=== PATIENT | male | born 2000 | race Two or more races ===

== ENCOUNTER → 2021-07-30 13:19 | Outpatient (BNVA) | payer OTHER, SELFPAY | PROVIDERS: PCP Internal Medicine; Visit Provider Dietitian, Registered | DX: E66.9 Obesity, unspecified (principal); Z68.43 Body mass index [BMI] 50.0-59.9, adult | CPT/HCPCS: 97802 ==

== ENCOUNTER 2021-09-05 08:49 | Outpatient (REF) | payer OTHER, SELFPAY ==
[2021-09-05 09:09] LABS: MANUAL DIFF FLAG NO
[2021-09-05 10:31] LABS: Basophils Percent Auto 0.6 % (0-2); Eosinophils Absolute Auto 0.2 X10*3/uL (0.0-0.4); Eosinophils Percent Auto 2.1 % (0-4); Hematocrit 37.7 % (42.0-52.0); Hemoglobin 11.7 g/dl (14.0-18.0); Imm Gran Abs Auto 0.01 X10*3/uL (0.00-0.03); Imm Gran Pct Auto 0.1 % (0.0-0.4); Lymphocytes Absolute Auto 1.7 X10*3/uL (1.2-4.9); Lymphocytes Percent Auto 23.5 % (20-40); Mean Corpuscular Hemoglobin 23.6 pg (27.0-33.0); Mean Corpuscular Volume 76.2 fL (80.0-98.0); Mean Platelet Volume 11.3 fL (9.4-12.4); Monocytes Absolute Auto 0.6 X10*3/uL (0.1-1.2); Monocytes Percent Auto 8.3 % (2-11); Neutrophils Absolute Auto 4.7 x10*3/uL (2.0-8.3); Neutrophils Percent Auto 65.4 % (45-73); Platelet Count 229 X10*3/uL (160-400); Red Blood Count 4.95 X10*6/uL (4.60-5.80); Red Cell Distribution Width 15.1 % (11.0-16.0); White Blood Count 7.2 X10*3/uL (4.8-10.8)
[2021-09-05 10:47] LABS: Appearance Urine CLEAR; Color Urine YELLOW; Glucose Urine UA NEG (NEG); Leukocyte Esterase Urine NEG (NEG); Nitrite Urine NEG (NEG); Specific Gravity - Urine 1.015 (1.005-1.025); Urine Blood NEG (NEG); Urine Ketones NEG (NEG); Urine Protein NEG (NEG-TRACE)
[2021-09-05 10:57] LABS: Estimated Average Glucose 108 mg/dL; Hemoglobin A1c % 5.4 %
[2021-09-05 11:00] LABS: RBC Urine 0-2 /HPF (0); Squamous Epithelial Cell Urine TRACE /LPF; WBC Urine 0-2 /HPF (0-4)
[2021-09-05 11:12] LABS: Alanine Aminotransferase 54 U/L (0-40); Albumin Level 4.1 g/dL (3.5-5.0); Alkaline Phosphatase 109 U/L (39-117); Anion Gap 14 (12-20); Aspartate Amino Transferase 42 U/L (5-37); Bilirubin Total 0.5 mg/dL (0.0-1.0); Blood Urea Nitrogen 10 mg/dL (9-16); Calcium 9.1 mg/dL (8.4-10.2); Carbon Dioxide 25 mmol/L (22-29); Chloride 105 mmol/L (96-108); Cholesterol 163 mg/dL; Estimated Glomerular Filt Rate > 60; Glucose Random 77 mg/dL (60-115); HDL Cholesterol 37 mg/dL; LDL Cholesterol Calculated 106 mg/dl; Potassium 4.6 mmol/L (3.3-5.1); Sodium 139 mmol/L (135-145); Total Protein 6.9 g/dL (6.5-8.0); Triglycerides 100 mg/dL
[2021-09-05 11:20] LABS: Free T4 (Free Thyroxine) 1.09 ng/dL (0.71-1.85); Thyroid Stimulating Hormone 1.19 uIU/mL (0.32-4.0)
[2021-09-05 11:36] LABS: Vitamin B12 < 146 pg/mL (200-900)
== END 2021-09-05 08:50 | disposition home or self-care (01) ==
LOC: HO.LAB 08:49
PROVIDERS: PCP Internal Medicine; Visit Provider Internal Medicine
DX: K75.81 Nonalcoholic steatohepatitis (NASH) (principal); I10 Essential (primary) hypertension; Q61.3 Polycystic kidney, unspecified; E78.00 Pure hypercholesterolemia, unspecified
CPT/HCPCS: 36415; 80053; 80061; 81001; 82607; 82746; 83036; 84439; 84443; 85025

== ENCOUNTER → 2021-10-01 12:38 | Outpatient (BNVA) | payer OTHER, SELFPAY | PROVIDERS: PCP Internal Medicine; Visit Provider Dietitian, Registered | DX: E66.9 Obesity, unspecified (principal); Z71.3 Dietary counseling and surveillance | CPT/HCPCS: 97803 ==

== ENCOUNTER → 2021-11-27 13:47 | Outpatient (BNVA) | payer OTHER, SELFPAY | PROVIDERS: PCP Internal Medicine; Visit Provider Dietitian, Registered | DX: E66.01 Morbid (severe) obesity due to excess calories (principal) | CPT/HCPCS: 97803 ==

== ENCOUNTER 2022-02-27 07:55 | Outpatient (REF) | payer OTHER, SELFPAY ==
[2022-02-27 08:08] LABS: MANUAL DIFF FLAG NO
[2022-02-27 08:20] LABS: Basophils Absolute Auto 0.1 X10*3/uL (0.0-0.2); Basophils Percent Auto 0.6 % (0-2); Eosinophils Absolute Auto 0.1 X10*3/uL (0.0-0.4); Eosinophils Percent Auto 1.6 % (0-4); Hematocrit 38.2 % (42.0-52.0); Imm Gran Abs Auto 0.02 X10*3/uL (0.00-0.03); Imm Gran Pct Auto 0.2 % (0.0-0.4); Immature Retic Fraction 18.7 % (2.3-13.4); Lymphocytes Percent Auto 23.5 % (20-40); Mean Corpuscular HGB Conc 31.4 g/dl (31.0-36.0); Mean Corpuscular Hemoglobin 24.1 pg (27.0-33.0); Mean Corpuscular Volume 76.7 fL (80.0-98.0); Mean Platelet Volume 9.4 fL (9.4-12.4); Monocytes Absolute Auto 0.7 X10*3/uL (0.1-1.2); Monocytes Percent Auto 8.2 % (2-11); Neutrophils Absolute Auto 5.6 x10*3/uL (2.0-8.3); Neutrophils Percent Auto 65.9 % (45-73); Platelet Count 301 X10*3/uL (160-400); Red Blood Count 4.98 X10*6/uL (4.60-5.80); Red Cell Distribution Width 15.4 % (11.0-16.0); Retic HGB Equivalent 25.8 pg (30.0-35.0); Reticulocyte Percent 1.5 % (0.5-1.8); Reticulocytes Absolute 0.073 X10*6/uL (0.026-0.095); White Blood Count 8.5 X10*3/uL (4.8-10.8)
[2022-02-27 08:59] LABS: Alanine Aminotransferase 32 U/L (0-40); Albumin Level 4.2 g/dL (3.5-5.0); Alkaline Phosphatase 112 U/L (39-117); Anion Gap 13 (12-20); Aspartate Amino Transferase 22 U/L (5-37); Bilirubin Total 0.5 mg/dL (0.0-1.0); Blood Urea Nitrogen 15 mg/dL (9-16); Calcium 9.5 mg/dL (8.4-10.2); Carbon Dioxide 26 mmol/L (22-29); Chloride 107 mmol/L (96-108); Estimated Glomerular Filt Rate > 60; Glucose Random 92 mg/dL (60-115); Iron 39 mcg/dL (45-160); Percent Iron Saturation 11 % (15-50); Potassium 4.5 mmol/L (3.3-5.1); Sodium 141 mmol/L (135-145); Total Iron Binding Capacity 363 mcg/dL (228-428); Total Protein 6.9 g/dL (6.5-8.0); Unsaturated Iron Binding 324 ug/dL
[2022-02-27 09:15] LABS: Ferritin 17 ng/mL (20-250)
[2022-02-27 09:30] LABS: Folate 17.7 ng/mL (> or = 4.0); Vitamin B12 901 pg/mL (200-900)
[2022-03-03 22:08] LABS: Intrinsic Factor Antibodies Negative (Negative)
[2022-03-07 14:14] LABS: Parietal Cell Antibody <=20.0 Unit (<=20.0)
== END 2022-02-27 07:56 | disposition home or self-care (01) ==
LOC: HO.LAB 07:55
PROVIDERS: PCP Internal Medicine; Visit Provider Internal Medicine
DX: D64.9 Anemia, unspecified (principal); K75.81 Nonalcoholic steatohepatitis (NASH); E53.8 Deficiency of other specified B group vitamins
CPT/HCPCS: 36415; 80053; 82607; 82728; 82746; 83516; 83540; 85025; 85045; 86340

== ENCOUNTER → 2022-04-10 13:22 | Outpatient (BNVA) | payer OTHER, SELFPAY | PROVIDERS: PCP Internal Medicine; Visit Provider Dietitian, Registered | DX: E66.01 Morbid (severe) obesity due to excess calories (principal); Z68.43 Body mass index [BMI] 50.0-59.9, adult | CPT/HCPCS: 97803 ==

== ENCOUNTER 2022-09-11 13:59 | Outpatient (AMB) | payer OTHER, SELFPAY ==
[2022-09-11 14:04] VITALS: BP 136/70; PULSE 84; O2SAT 98; BMI 54.8
--- NOTE | 2022-09-11 14:04 | MHC.PC.OV ---
Vital Signs 09/11/22 14:04 Height 5 ft 10 in Weight 382 lb BMI 54.8 BP 136/70 Blood Pressure Location Lt brachial Position Sitting Pulse 84 Pulse Source Pulse Oximeter Pulse Oximetry (%) 98 Oxygen Delivery Method Room Air Intake Visit Reasons: anemia, HTN Allergies No Known Allergies [No Known Allergies*] Allergy (Verified 09/11/22 14:04) Medication List - Last Reconciled 09/11/22 by Georgette Angelo MD ascorbate calcium (vitamin C) 500 mg PO DAILY clindamycin-benzoyl peroxide 1.2 %(1 % base) -5 % 1 appl topical QPM cyanocobalamin (vitamin B-12) 1,000 mcg PO DAILY ferrous sulfate (FeroSul) 325 mg PO DAILY folic acid 1 mg PO DAILY 30 days semaglutide (weight loss) 0.25 mg (0.5 mL) subcut QWEEK Tobacco use date assessed: 03/13/22 Dental Screening Dental Screen Date: 09/11/22 Did you have a dental visit in the last 12 months?: No Did you have a dental problem in the last 6 months where you did not have access to dental care?: No Was dental information given to patient?: No HPI anemia, HTN HPI Details 22-year-old morbidly obese male with iron deficiency anemia vitamin B12 deficiency fatty liver polycystic kidney disease and hypertension last seen in February 2022 and blood work was requested patient is here for follow-up. Patient has seen Nephrology June 2022 concern about the blood pressure and the weight. Blood work in February did show iron and vitamin B12 deficiency anemia [facility] Medical History (Updated 09/11/22 @ 14:27 by Georgette Angelo MD) Annual physical exam Asthma CURIEL (nonalcoholic steatohepatitis) Obesity Polycystic kidney disease Family History (Updated 09/11/22 @ 14:05 by Jen Varma CMA) Mother Diabetes Father Diabetes Polycystic kidney disease Sister No problems noted. Social History (Updated 04/04/21 @ 14:01 by Georgette Angelo MD) Housing: Other Alcohol intake: never Patient Tobacco Use Status: Never used Tobacco e-Cigarette/Vaping Use: Never Used Second Hand Smoke Exposure: No service: No Current occupational status: employed Cognitive needs: No Hearing needs: No Vision needs: No Questionnaire PHQ-9 Over the last 2 weeks, how often have you been bothered by any of the following problems? 1. Little interest or pleasure in doing things: not at all 2. Feeling down, depressed, or hopeless: not at all 3. Trouble falling or staying asleep, or sleeping too much: not at all 4. Feeling tired or having little energy: not at all 5. Poor appetite or overeating: not at all 6. Feeling bad about yourself - or that you are a failure or have let yourself or your family down: not at all 7. Trouble concentrating on things, such as reading the newspaper or watching television: not at all 8. Moving or speaking so slowly that other people could have noticed. Or the opposite - being so fidgety or restless that you have been moving around a lot more than usual: not at all 9. Thoughts that you would be better off or of hurting yourself in some way: not at all Total score: 0 Depression Screening Interpretation: Negative Source: Developed by Drs. Nicholas Howell, Marlys Sykes, Jared Fox and colleagues, with an educational sameera from [email or web address]. Thrive Questionnaire Date Thrive assessed: 03/13/22 AUDIT C Alcohol Use Questionnaire (AUDIT-C) 1. How often do you have a drink containing alcohol?: Never 3. How often do you have six or more drinks on one occasion?: Never Total Score: 0 RL-7 AMB Questionnaire RL-7 Date RL - 7 assessed: 03/13/22 Source: Developed by Drs. Nicholas Howell, Marlys Sykes, Jared Fox and colleagues, with an educational sameera from [email or web address]. Physical exam (Primary Care) Vital Signs: Last Vital Signs Pulse 84 09/11/22 14:04 BP 136/70 09/11/22 14:04 Pulse Ox 98 09/11/22 14:04 Oxygen Delivery Method Room Air 09/11/22 14:04 BMI result Body Mass Index 54.8 Tobacco/Smoking Status: Tobacco use Status Tobacco use date assessed 03/13/22 09/11/22 14:07 Patient Tobacco Use Status Never used Tobacco 09/11/22 14:07 e-Cigarette/Vaping Use Never Used 09/11/22 14:07 PHQ-9: PHQ-9 Score PHQ-9: Total score 0 09/11/22 14:07 Depression Screening Interpretation: Negative Thrive Assessment: Date of Thrive Assessment Date Thrive assessed 03/13/22 09/11/22 14:07 Const General: alert; No acute distress Eyes Conjunctivae: conjunctivae normal Resp Auscultation: clear to auscultation bilaterally Cardio Rate: regular rate Rhythm: regular rhythm GI Inspection: Yes normal to inspection Extrem General: Yes normal to inspection and No edema Assessment and Plan Assessment & Plan (1) Iron deficiency anemia: Code(s): D50.9 - Iron deficiency anemia, unspecified Plan: Patient is advised to take iron and vitamin-C (2) Vitamin B12 deficiency: Code(s): E53.8 - Deficiency of other specified B group vitamins Plan: Patient is advised to take vitamin B12 1000 mcg once a day (3) Morbid obesity due to excess calories: Code(s): E66.01 - Morbid (severe) obesity due to excess calories Plan: Patient has been sent to a magnetic prospecting supervisor to help lose the weight but this has not been effective (4) CURIEL (nonalcoholic steatohepatitis): Code(s): K75.81 - Nonalcoholic steatohepatitis (CURIEL) Plan: Low-fat diet and exercise (5) Polycystic kidney disease: Comment: Nephrology 2021 Code(s): Q61.3 - Polycystic kidney, unspecified Plan: Patient is being monitored by Nephrology (6) Hypertension: Code(s): I10 - Essential (primary) hypertension Plan: Blood pressure presently is under control (7) Asthma: Code(s): J45.909 - Unspecified asthma, uncomplicated Plan: This is controlled (8) Seborrhea: Code(s): L21.9 - Seborrheic dermatitis, unspecified Orders: Referrals Medical Weight Management Referral E66.01 - Morbid (severe) obesity due to excess calories Dermatology Referral L21.9 - Seborrheic dermatitis, unspecified Medications: New semaglutide (weight loss) administer weeks 1 through 4 of therapy 0.25 mg (0.5 mL) subcut QWEEK 2 mL 1RF E66.01 - Morbid (severe) obesity due to excess calories ketoconazole 2% 1 appl topical 2XW 120 mL 0RF L21.9 - Seborrheic dermatitis, unspecified Coding Level of Care Code Est Pt Level 4 (44684) Diagnoses Iron deficiency anemia D50.9 Vitamin B12 deficiency E53.8 Morbid obesity due to excess calories E66.01 CURIEL (nonalcoholic steatohepatitis) K75.81 Polycystic kidney disease Q61.3 Hypertension I10 Asthma J45.909 Seborrhea L21.9
== END 2022-09-11 14:33 | disposition home or self-care (01) ==
PROVIDERS: Visit Provider Internal Medicine
DX: I10 Essential (primary) hypertension (principal); E66.01 Morbid (severe) obesity due to excess calories; J45.909 Unspecified asthma, uncomplicated; Z68.43 Body mass index [BMI] 50.0-59.9, adult; E53.8 Deficiency of other specified B group vitamins; Q61.3 Polycystic kidney, unspecified; D50.9 Iron deficiency anemia, unspecified; K75.81 Nonalcoholic steatohepatitis (NASH); L21.9 Seborrheic dermatitis, unspecified
CPT/HCPCS: 99214

== ENCOUNTER 2022-11-26 10:53 | Outpatient (REF) | payer OTHER, SELFPAY ==
[2022-11-26 11:07] LABS: MANUAL DIFF FLAG NO
[2022-11-26 11:47] LABS: Basophils Percent Auto 0.5 % (0-2); Eosinophils Absolute Auto 0.1 X10*3/uL (0.0-0.4); Eosinophils Percent Auto 1.6 % (0-4); Hemoglobin 14.4 g/dl (14.0-18.0); Imm Gran Abs Auto 0.02 X10*3/uL (0.00-0.03); Imm Gran Pct Auto 0.3 % (0.0-0.4); Immature Retic Fraction 11.3 % (2.3-13.4); Lymphocytes Absolute Auto 1.7 X10*3/uL (1.2-4.9); Lymphocytes Percent Auto 22.2 % (20-40); Mean Corpuscular HGB Conc 32.7 g/dl (31.0-36.0); Mean Corpuscular Hemoglobin 27.6 pg (27.0-33.0); Mean Corpuscular Volume 84.5 fL (80.0-98.0); Mean Platelet Volume 9.8 fL (9.4-12.4); Monocytes Absolute Auto 0.6 X10*3/uL (0.1-1.2); Monocytes Percent Auto 7.2 % (2-11); Neutrophils Absolute Auto 5.2 x10*3/uL (2.0-8.3); Neutrophils Percent Auto 68.2 % (45-73); Platelet Count 264 X10*3/uL (160-400); Red Blood Count 5.21 X10*6/uL (4.60-5.80); Red Cell Distribution Width 13.4 % (11.0-16.0); Retic HGB Equivalent 32.5 pg (30.0-35.0); Reticulocyte Percent 1.8 % (0.5-1.8); Reticulocytes Absolute 0.096 X10*6/uL (0.026-0.095); White Blood Count 7.7 X10*3/uL (4.8-10.8)
[2022-11-26 12:25] LABS: Alanine Aminotransferase 40 U/L (0-40); Albumin Level 4.2 g/dL (3.5-5.0); Alkaline Phosphatase 108 U/L (39-117); Anion Gap 13 (12-20); Aspartate Amino Transferase 26 U/L (5-37); Bilirubin Total 0.5 mg/dL (0.0-1.0); Blood Urea Nitrogen 13 mg/dL (9-16); Calcium 9.5 mg/dL (8.4-10.2); Carbon Dioxide 26 mmol/L (22-29); Chloride 107 mmol/L (96-108); Estimated Glomerular Filt Rate > 60; Glucose Random 101 mg/dL (60-115); Iron 73 mcg/dL (45-160); Percent Iron Saturation 24 % (15-50); Potassium 4.1 mmol/L (3.3-5.1); Sodium 142 mmol/L (135-145); Total Iron Binding Capacity 305 mcg/dL (228-428); Total Protein 7.4 g/dL (6.5-8.0); Unsaturated Iron Binding 232 ug/dL
[2022-11-26 12:36] LABS: Ferritin 75 ng/mL (20-250)
[2022-11-26 12:46] LABS: Folate 17.4 ng/mL (> or = 4.0); Vitamin B12 1566 pg/mL (200-900)
== END 2022-11-26 10:54 | disposition home or self-care (01) ==
LOC: HO.LAB 10:53
PROVIDERS: PCP Internal Medicine; Visit Provider Internal Medicine
DX: D50.9 Iron deficiency anemia, unspecified (principal)
CPT/HCPCS: 36415; 80053; 82607; 82728; 82746; 83540; 85025; 85045

== ENCOUNTER 2023-04-20 15:15 | Outpatient (AMB) | payer OTHER, SELFPAY ==
[2023-04-20 15:16] VITALS: BP 146/92; PULSE 76; O2SAT 100; BMI 52.7
--- NOTE | 2023-04-20 15:16 | MHC.PC.OV ---
Vital Signs 04/20/23 15:16 04/20/23 15:53 Height 5 ft 10 in Weight 367 lb BMI 52.7 BP 146/92 H 140/90 H Blood Pressure Location Lt brachial Lt brachial Position Sitting Sitting Pulse 76 Pulse Source Pulse Oximeter Pulse Oximetry (%) 100 Oxygen Delivery Method Room Air Intake Visit Reasons: 9m follow up Dishtank Operator Required: No Allergies No Known Allergies [No Known Allergies*] Allergy (Verified 04/20/23 15:17) Medication List - Last Reconciled 04/20/23 by Georgette Angelo MD ascorbate calcium (vitamin C) 500 mg PO DAILY clindamycin-benzoyl peroxide 1.2 %(1 % base) -5 % 1 appl topical QPM cyanocobalamin (vitamin B-12) 1,000 mcg PO DAILY ferrous sulfate (FeroSul) 325 mg PO DAILY folic acid 1 mg PO DAILY ketoconazole 2% 1 appl topical 2XW semaglutide (weight loss) 0.25 mg (0.5 mL) subcut QWEEK Tobacco use date assessed: 04/20/23 Dental Screening Dental Screen Date: 04/20/23 HPI 9m follow up HPI Details [age] Year old morbidly obese male with iron deficiency anemia vitamin B12 deficiency nonalcoholic steatohepatitis polycystic kidney disease hypertension asthma coming in for follow-up last seen in August 2022. Patient did have the vaccine for flu in January 2023 [facility] Medical History (Updated 04/20/23 @ 15:54 by Georgette Angelo MD) Annual physical exam Obesity Asthma Polycystic kidney disease CURIEL (nonalcoholic steatohepatitis) Family History (Updated 09/11/22 @ 14:05 by Jen Varma [facility]) Mother Diabetes Father Diabetes Polycystic kidney disease Sister No problems noted. Social History (Updated 04/04/21 @ 14:01 by Georgette Angelo MD) Housing: Other Alcohol intake: never Patient Tobacco Use Status: Never used Tobacco e-Cigarette/Vaping Use: Never Used Second Hand Smoke Exposure: No service: No Current occupational status: employed Cognitive needs: No Hearing needs: No Vision needs: No Questionnaire PHQ-9 Over the last 2 weeks, how often have you been bothered by any of the following problems? 1. Little interest or pleasure in doing things: not at all 2. Feeling down, depressed, or hopeless: not at all 3. Trouble falling or staying asleep, or sleeping too much: not at all 4. Feeling tired or having little energy: not at all 5. Poor appetite or overeating: not at all 6. Feeling bad about yourself - or that you are a failure or have let yourself or your family down: not at all 7. Trouble concentrating on things, such as reading the newspaper or watching television: not at all 8. Moving or speaking so slowly that other people could have noticed. Or the opposite - being so fidgety or restless that you have been moving around a lot more than usual: not at all 9. Thoughts that you would be better off or of hurting yourself in some way: not at all Total score: 0 Depression Screening Interpretation: Negative Depression Screening Done: Yes Source: Developed by Drs. Nicholas Howell, Marlys Sykes, Jared Fox and colleagues, with an educational sameera from [employer]. Thrive Questionnaire Date Thrive assessed: 04/20/23 AUDIT C Alcohol Use Questionnaire (AUDIT-C) 1. How often do you have a drink containing alcohol?: Never 3. How often do you have six or more drinks on one occasion?: Never Total Score: 0 RL-7 AMB Questionnaire RL-7 Date RL - 7 assessed: 04/20/23 Feeling nervous, anxious, or on edge: 0 = Not at all Not being able to stop or control worryin = Not at all Worrying too much about different things: 0 = Not at all Trouble relaxin = Not at all Being so restless that it is hard to sit still: 0 = Not at all Becoming easily annoyed or irritable: 0 = Not at all Feeling afraid as if something awful might happen: 0 = Not at all Total RL-7 score (0-4 normal; 5-9 mild; 10-14 moderate; 15-21 severe): 0 Source: Developed by Drs. Nicholas Howell, Jared Harry and colleagues, with an educational sameera from [employer]. Physical exam (Primary Care) Vital Signs: Last Vital Signs Pulse 76 04/20/23 15:16 BP 146/92 H 04/20/23 15:16 Pulse Ox 100 04/20/23 15:16 Oxygen Delivery Method Room Air 04/20/23 15:16 BMI result Body Mass Index 52.7 Tobacco/Smoking Status: Tobacco use Status Tobacco use date assessed 04/20/23 04/20/23 15:17 Patient Tobacco Use Status Never used Tobacco 04/20/23 15:17 e-Cigarette/Vaping Use Never Used 04/20/23 15:17 PHQ-9: PHQ-9 Score PHQ-9: Total score 0 04/20/23 15:17 Depression Screening Interpretation: Negative Thrive Assessment: Date of Thrive Assessment Date Thrive assessed 04/20/23 04/20/23 15:17 Const General: alert; No acute distress Eyes Conjunctivae: conjunctivae normal Resp Auscultation: clear to auscultation bilaterally Cardio Rate: regular rate Rhythm: regular rhythm GI Inspection: Yes normal to inspection Extrem General: Yes normal to inspection and No edema Assessment and Plan Assessment & Plan (1) Morbid obesity due to excess calories: Code(s): E66.01 - Morbid (severe) obesity due to excess calories Plan: Diet and exercise, continue with semaglutide (2) Iron deficiency anemia: Code(s): D50.9 - Iron deficiency anemia, unspecified Plan: Resolved (3) Hypertension: Comment: BP at home is good Code(s): I10 - Essential (primary) hypertension Plan: BP at home has been good (4) Asthma: Code(s): J45.909 - Unspecified asthma, uncomplicated Plan: Stable (5) CURIEL (nonalcoholic steatohepatitis): Code(s): K75.81 - Nonalcoholic steatohepatitis (CURIEL) Plan: Low-fat diet and exercise Medications: Refilled clindamycin-benzoyl peroxide 1.2 %(1 % base) -5 % 1 appl topical QPM 45 grams 2RF Coding Level of Care Code Est Pt Level 4 (89008) Diagnoses Morbid obesity due to excess calories E66.01 Iron deficiency anemia D50.9 Hypertension I10 Asthma J45.909 CURIEL (nonalcoholic steatohepatitis) K75.81
[2023-04-20 15:53] VITALS: BP 140/90
== END 2023-04-20 16:00 | disposition home or self-care (01) ==
PROVIDERS: PCP Internal Medicine; Visit Provider Internal Medicine
DX: D50.9 Iron deficiency anemia, unspecified (principal); E66.01 Morbid (severe) obesity due to excess calories; Z68.43 Body mass index [BMI] 50.0-59.9, adult; I10 Essential (primary) hypertension; J45.909 Unspecified asthma, uncomplicated; K75.81 Nonalcoholic steatohepatitis (NASH)
CPT/HCPCS: 99214

== ENCOUNTER 2023-10-19 14:46 | Outpatient (AMB) | payer OTHER, SELFPAY ==
--- NOTE | 2023-10-19 14:52 | MHC.PC.OV ---
Vital Signs 10/19/23 14:53 Height 5 ft 10 in Weight 364 lb BMI 52.2 BP 144/92 H Blood Pressure Location Lt brachial Position Sitting Pulse 83 Pulse Source Pulse Oximeter Pulse Oximetry (%) 98 Oxygen Delivery Method Room Air Intake Visit Reasons: Annual Exam Allergies No Known Allergies [No Known Allergies*] Allergy (Verified 10/19/23 14:53) Medication List - Last Reconciled 10/19/23 by Georgette Angelo MD ascorbic acid (vitamin C) (Vitamin C) 500 mg PO DAILY clindamycin-benzoyl peroxide 1.2 %(1 % base) -5 % 1 appl topical QPM cyanocobalamin (vitamin B-12) 1,000 mcg PO DAILY ferrous sulfate 325 mg PO DAILY folic acid 1 mg PO DAILY ketoconazole 2% 1 appl topical 2XW Tobacco use date assessed: 04/20/23 Dental Screening Dental Screen Date: 10/19/23 Did you have a dental visit in the last 12 months?: No Did you have a dental problem in the last 6 months where you did not have access to dental care?: No Was dental information given to patient?: Patient has dentist HPI Annual Exam HPI Details 23-year-old morbidly obese male with anemia hypertension asthma hepatic steatosis coming in for physical exam last seen in March 2023. 3 days sore throat , no chills, , mild cough covid checked negative [facility] Medical History (Updated 10/19/23 @ 15:25 by Georgette Angelo MD) Annual physical exam Obesity Asthma Polycystic kidney disease CURIEL (nonalcoholic steatohepatitis) Family History (Updated 09/11/22 @ 14:05 by Jen Varma [facility]) Mother Diabetes Father Diabetes Polycystic kidney disease Sister No problems noted. Social History (Updated 04/04/21 @ 14:01 by Georgette Angelo MD) Housing: Other Alcohol intake: never Patient Tobacco Use Status: Never used Tobacco Tobacco use type: Cigarette e-Cigarette/Vaping Use: Never Used Second Hand Smoke Exposure: No service: No Current occupational status: employed Cognitive needs: No Hearing needs: No Vision needs: No Questionnaire PHQ-9 Over the last 2 weeks, how often have you been bothered by any of the following problems? 1. Little interest or pleasure in doing things: not at all 2. Feeling down, depressed, or hopeless: not at all 3. Trouble falling or staying asleep, or sleeping too much: not at all 4. Feeling tired or having little energy: not at all 5. Poor appetite or overeating: not at all 6. Feeling bad about yourself - or that you are a failure or have let yourself or your family down: not at all 7. Trouble concentrating on things, such as reading the newspaper or watching television: not at all 8. Moving or speaking so slowly that other people could have noticed. Or the opposite - being so fidgety or restless that you have been moving around a lot more than usual: not at all 9. Thoughts that you would be better off or of hurting yourself in some way: not at all Total score: 0 Depression Screening Interpretation: Negative Depression Screening Done: Yes Source: Developed by Drs. Nicholas Howell, Marlys Sykes, Jared Fox and colleagues, with an educational sameera from [employer]. Thrive Questionnaire Date Thrive assessed: 04/20/23 AUDIT C Alcohol Use Questionnaire (AUDIT-C) 1. How often do you have a drink containing alcohol?: Never 3. How often do you have six or more drinks on one occasion?: Never Total Score: 0 RL-7 AMB Questionnaire RL-7 Date RL - 7 assessed: 04/20/23 Source: Developed by Drs. Nicholas Howell, Marlys Sykes, Jared Fox and colleagues, with an educational sameera from [employer]. Review of Systems Const Denies poor appetite and Denies weakness Eyes Denies no additional complaints ENT Reports Normal hearing present, Denies dizziness, Denies nasal congestion, Denies tinnitus and Denies sore throat Card Denies chest pain, Denies syncope, Denies rapid heart rate and Denies dyspnea Resp Denies cough and Denies dyspnea GI Denies change in stool character, Reports constipation, Denies diarrhea, Denies nausea and Denies vomiting Denies dysuria and Denies urinary frequency Neuro Reports Normal hearing present, Denies confusion, Denies dizziness, Denies syncope and Denies weakness Psych Denies confusion Physical exam (Primary Care) Vital Signs: Last Vital Signs Pulse 83 10/19/23 14:53 BP 144/92 H 10/19/23 14:53 Pulse Ox 98 10/19/23 14:53 Oxygen Delivery Method Room Air 10/19/23 14:53 BMI result Body Mass Index 52.2 Tobacco/Smoking Status: Tobacco use Status Tobacco use date assessed 04/20/23 10/19/23 14:57 Patient Tobacco Use Status Never used Tobacco 10/19/23 14:57 Tobacco use type Cigarette 10/19/23 14:57 e-Cigarette/Vaping Use Never Used 10/19/23 14:57 PHQ-9: PHQ-9 Score PHQ-9: Total score 0 10/19/23 14:57 Depression Screening Interpretation: Negative Thrive Assessment: Date of Thrive Assessment Date Thrive assessed 04/20/23 10/19/23 14:57 Const General: No confusion Orientation/consciousness: No confusion HENMT Other: B/l ear impacted cerumen a , whitish discharge bilateral tonsils and enlarged Head: Yes normocephalic Ears: external ears normal Face and sinus: Yes normal facial exam Mouth: moist mucous membranes Eyes Conjunctivae: conjunctivae normal Pupils: Equal, round and reactive pupils present and Pupil accommodation reflex normal Direct Ophthalmoscopy: normal light reflex Neck Neck: No lymphadenopathy Thyroid: Thyroid normal Chest Chest palpation & inspection: normal inspection of the chest Resp Effort & Inspection: normal respiratory effort and no audible wheezes Auscultation: clear to auscultation bilaterally, no crackles, no wheezes and lung sounds not diminished Cardio Rate: regular rate Rhythm: regular rhythm Peripheral pulses: radial pulses present and dorsalis pedis present GI Palpation (GI): no masses Auscultation: normal bowel sounds and normoactive bowel sounds Rectal Exam - Male: Yes deferred Skin General skin exam: no rashes or lesions noted Rashes: no rashes Neuro General: No confusion Cranial nerves: Yes Equal, round and reactive pupils present and Yes Normal hearing present Cognition (Neuro): normal cognition Gait exam (Neuro): Normal gait present Motor exam (neuro): 5/5 motor strength present throughout Deep tendon reflexes (DTR's): Right brachioradialis reflex intensity grade: 2+, Left brachioradialis reflex intensity grade: 2+, Right patellar reflex intensity grade: 2+ and Left patellar reflex intensity grade: 2+ Extrem General: No edema Assessment and Plan Assessment & Plan (1) Annual physical exam: Code(s): Z00.00 - Encounter for general adult medical examination without abnormal findings Plan: Patient is advised to eat healthy, keep well hydrated, keep active and have adequate sleep. (2) Morbid obesity due to excess calories: Code(s): E66.01 - Morbid (severe) obesity due to excess calories Plan: Continue to keep active, keep well hydrated and eat healthy. (3) CURIEL (nonalcoholic steatohepatitis): Code(s): K75.81 - Nonalcoholic steatohepatitis (CURIEL) Plan: Low-fat diet and exercise (4) Polycystic kidney disease: Comment: Nephrology 2021 Code(s): Q61.3 - Polycystic kidney, unspecified (5) Hypertension: Comment: BP at home is good Code(s): I10 - Essential (primary) hypertension Plan: Continuing to monitor blood pressure (6) Asthma: Code(s): J45.909 - Unspecified asthma, uncomplicated Plan: Stable (7) Seborrhea: Code(s): L21.9 - Seborrheic dermatitis, unspecified (8) Tonsillitis: Code(s): J03.90 - Acute tonsillitis, unspecified (9) Impacted cerumen of both ears: Code(s): H61.23 - Impacted cerumen, bilateral Plan: will schedule for easr irrigation prn Orders: Orders Complete Blood Count Auto Diff 1 Month E66.01 - Morbid (severe) obesity due to excess calories Ferritin 1 Month D50.9 - Iron deficiency anemia, unspecified IRON PROFILE 1 Month D50.9 - Iron deficiency anemia, unspecified Reticulocyte Count 1 Month D50.9 - Iron deficiency anemia, unspecified Vitamin B12 and Folate 1 Month E66.01 - Morbid (severe) obesity due to excess calories Comprehensive Met. Panel 1 Month E66.01 - Morbid (severe) obesity due to excess calories Free T4 (Free Thyroxine) 1 Month E66.01 - Morbid (severe) obesity due to excess calories Thyroid Stimulating Hormone 1 Month E66.01 - Morbid (severe) obesity due to excess calories Lipid Panel 1 Month E66.01 - Morbid (severe) obesity due to excess calories, E78.00 - Pure hypercholesterolemia, unspecified Hemoglobin A1c 1 Month E66.01 - Morbid (severe) obesity due to excess calories Medications: New azithromycin (Zithromax) For 250 mg dose pack: take 500 mg today (day 1), then 250 mg for 4 days (days 2-5) PO 6 tabs 0RF J03.90 - Acute tonsillitis, unspecified Refilled ferrous sulfate 325 mg PO DAILY 90 tabs 1RF ascorbic acid (vitamin C) (Vitamin C) 500 mg PO DAILY 90 tabs 1RF D50.9 - Iron deficiency anemia, unspecified folic acid 1 mg PO DAILY 90 tabs 1RF E53.8 - Deficiency of other specified B group vitamins Coding Level of Care Code Est Pt Prev Care 18-39y(95191) Diagnoses Annual physical exam Z00.00 Morbid obesity due to excess calories E66.01 CURIEL (nonalcoholic steatohepatitis) K75.81 Polycystic kidney disease Q61.3 Hypertension I10 Asthma J45.909 Seborrhea L21.9 Tonsillitis J03.90 Impacted cerumen of both ears H61.23
[2023-10-19 14:53] VITALS: BP 144/92; PULSE 83; O2SAT 98; BMI 52.2
== END 2023-10-19 15:38 | disposition home or self-care (01) ==
PROVIDERS: PCP Internal Medicine; Visit Provider Internal Medicine
DX: Z00.00 Encounter for general adult medical examination without abnormal findings (principal); E66.01 Morbid (severe) obesity due to excess calories; K75.81 Nonalcoholic steatohepatitis (NASH); Z68.43 Body mass index [BMI] 50.0-59.9, adult; H61.23 Impacted cerumen, bilateral; I10 Essential (primary) hypertension; Q61.3 Polycystic kidney, unspecified; J45.909 Unspecified asthma, uncomplicated; L21.9 Seborrheic dermatitis, unspecified; J03.90 Acute tonsillitis, unspecified
CPT/HCPCS: 99395

== ENCOUNTER 2024-04-04 11:12 | Outpatient (AMB) | payer OTHER, SELFPAY ==
--- NOTE | 2024-04-04 11:13 | MHC.PC.OV ---
Vital Signs 04/04/24 11:17 Height 5 ft 10 in Weight 382 lb BMI 54.8 BP 146/82 H Blood Pressure Location Lt brachial Position Sitting Pulse 71 Pulse Source Pulse Oximeter Pulse Oximetry (%) 98 Oxygen Delivery Method Room Air Intake Visit Reasons: obesity Allergies No Known Allergies [No Known Allergies*] Allergy (Verified 10/19/23 14:53) Tobacco use date assessed: 04/20/23 Dental Screening Dental Screen Date: 10/19/23 HPI obesity HPI Details The patient is a 23-year-old male presenting with concerns regarding morbid obesity and hypertension. He has noted an 18-pound weight gain since his last visit on October 19, 2023. The patient reports a history of essential hypertension and has been monitoring his blood pressure at home, noting occasional readings of 130 mmHg systolic but occasional spikes to 146 mmHg. He acknowledges a lack of physical activity as a contributing factor to his weight gain. The patient's blood glucose level was previously found to be elevated at 101 mg/dL, and he has a history of dyslipidemia with an LDL of 106 mg/dL, last tested in 2021. Thyroid function tests were normal as of August 2021. The patient also has a history of asthma and polycystic kidney disease. The last flu vaccination was administered in late 2022 at [facility], and he is up to date with his tetanus immunization, last received in 2021. Current medication compliance includes use of prescribed topicals for a dermatological condition, assisted by frequent refills. There is a noted lack of recent exercise, contributing to ongoing weight management challenges. [facility] Medical History (Updated 04/04/24 @ 11:24 by Georgette Angelo MD) Annual physical exam Obesity Asthma Polycystic kidney disease CURIEL (nonalcoholic steatohepatitis) Surgical History (Updated 04/04/24 @ 11:17 by ALEXANDRE Bernal) No pertinent past surgical history Family History Mother Diabetes Father Diabetes Polycystic kidney disease Sister No problems noted. Social History Housing: Other Alcohol intake: never Patient Tobacco Use Status: Never used Tobacco Tobacco use type: Cigarette e-Cigarette/Vaping Use: Never Used Second Hand Smoke Exposure: No service: No Current occupational status: employed Cognitive needs: No Hearing needs: No Vision needs: No Questionnaire PHQ-9 Over the last 2 weeks, how often have you been bothered by any of the following problems? 1. Little interest or pleasure in doing things: not at all 2. Feeling down, depressed, or hopeless: not at all 3. Trouble falling or staying asleep, or sleeping too much: not at all 4. Feeling tired or having little energy: not at all 5. Poor appetite or overeating: not at all 6. Feeling bad about yourself - or that you are a failure or have let yourself or your family down: not at all 7. Trouble concentrating on things, such as reading the newspaper or watching television: not at all 8. Moving or speaking so slowly that other people could have noticed. Or the opposite - being so fidgety or restless that you have been moving around a lot more than usual: not at all 9. Thoughts that you would be better off or of hurting yourself in some way: not at all Total score: 0 Depression Screening Interpretation: Negative Depression Screening Done: Yes Source: Developed by Drs. Nicholas Howell, Marlys Sykes, Jared Fox and colleagues, with an educational sameera from [employer]. Thrive Questionnaire Date Thrive assessed: 04/04/24 I am a: Patient What is your living situation today?: I have a steady place to live Within the past 12 months, did the food you bought not last and you didn't have the money to get more?: Never true Within the past 12 months, did you worry whether your food would run out before you got money to buy more?: Never true Do you have trouble paying for medicines?: No Do you have trouble getting transportation to medical appointments?: No Do you have trouble paying your heating and electricity bill?: No Do you have trouble taking care of your child, family member or friend?: No Do you have trouble with day-to-day activities such as bathing, preparing meals, shopping, managing finances, etc.?: No Are you currently unemployed and looking for a job?: No Are you interested in more education?: No Please select the resources that you would like help with: None Currently or been in a relationship where the following occur: No concerns reported THRIVE Score: 0 AUDIT C Alcohol Use Questionnaire (AUDIT-C) 1. How often do you have a drink containing alcohol?: Never Total Score: 0 RL-7 AMB Questionnaire RL-7 Date LR - 7 assessed: 04/04/24 Feeling nervous, anxious, or on edge: 0 = Not at all Not being able to stop or control worryin = Not at all Worrying too much about different things: 0 = Not at all Trouble relaxin = Not at all Being so restless that it is hard to sit still: 0 = Not at all Becoming easily annoyed or irritable: 0 = Not at all Feeling afraid as if something awful might happen: 0 = Not at all Total RL-7 score (0-4 normal; 5-9 mild; 10-14 moderate; 15-21 severe): 0 Source: Developed by Drs. Nicholas Howell, Marlys Sykes, Jared Fox and colleagues, with an educational sameera from [employer]. Physical exam (Primary Care) Vital Signs: Last Vital Signs Pulse 71 04/04/24 11:17 BP 146/82 H 04/04/24 11:17 Pulse Ox 98 04/04/24 11:17 Oxygen Delivery Method Room Air 04/04/24 11:17 BMI result Body Mass Index 54.8 Tobacco/Smoking Status: Tobacco use Status Tobacco use date assessed 04/20/23 04/04/24 11:21 Patient Tobacco Use Status Never used Tobacco 04/04/24 11:21 Tobacco use type Cigarette 04/04/24 11:21 e-Cigarette/Vaping Use Never Used 04/04/24 11:21 PHQ-9: PHQ-9 Score PHQ-9: Total score 0 04/04/24 12:04 Depression Screening Interpretation: Negative Thrive Assessment: Date of Thrive Assessment Date Thrive assessed 04/04/24 04/04/24 11:21 Currently or been in a relationship where the following occur: No concerns reported Const General: alert; No acute distress Eyes Conjunctivae: conjunctivae normal Resp Auscultation: clear to auscultation bilaterally Cardio Rate: regular rate Rhythm: regular rhythm GI Inspection: Yes normal to inspection Extrem General: Yes normal to inspection and No edema Office Procedures Flu Questionnaire Does the patient have a severe egg allergy?: No Immunizations Fluarix Triv [id number] (PF) 45 mcg (15 mcg x 3)/0.5 mL IM syringe Performing Provider: Georgette Angelo MD Performing Location: [facility] Documented (not given) by: Yvetteamandeep Holm CHARBELWarren on 04/04/24 12:04 Reason Not Given: Patient Refused Coding Level of Care Code Est Pt Level 4 (54499) Diagnoses Morbid obesity due to excess calories E66.01 Hypertension I10 Impaired fasting blood sugar R73.01 Seborrhea L21.9 Assessment & Plan Assessment & Plan (1) Morbid obesity due to excess calories: Code(s): E66.01 - Morbid (severe) obesity due to excess calories Category: Medical Plan: Diet and exercise advised on getting weight loss management in the case. (2) Hypertension: Comment: BP at home is good Code(s): I10 - Essential (primary) hypertension Category: Medical (3) Impaired fasting blood sugar: Code(s): R73.01 - Impaired fasting glucose Category: Medical Plan: Decrease the amount of carbohydrate intake, pasta, bread, rice and potatoes are all sugar and that is aside from all the sweet stuff, remember that fruits are good but they are Sweet also. (4) Seborrhea: Code(s): L21.9 - Seborrheic dermatitis, unspecified Category: Medical Plan - Arrange for fasting blood work to assess current glucose and cholesterol levels. - Encourage patient to maintain a log of blood pressure readings taken with an arm cuff device and report any consistent measurements of 140/90 mmHg or higher. - Discuss potential referral to a weight management clinic to address recent increase in body weight and provide structured guidance on lifestyle modifications. - Reassure patient regarding the effectiveness of current dermatological treatments and approve refill of prescribed shampoo. - Advise patient to remain physically active to assist with weight and blood pressure control. - Confirm continuation of annual influenza vaccination and maintain immunization schedule for tetanus as previously outlined. Orders: Orders Influenza [id number] Immunization Today Z23 - Encounter for immunization Medications: Refilled ketoconazole 2% 1 appl topical 2XW 120 mL 0RF L21.9 - Seborrheic dermatitis, unspecified Discontinued azithromycin (Zithromax) Discontinued Reason: Patient Completed Course For 250 mg dose pack: take 500 mg today (day 1), then 250 mg for 4 days (days 2-5) PO 6 tabs 0RF J03.90 - Acute tonsillitis, unspecified
[2024-04-04 11:17] VITALS: BP 146/82; PULSE 71; O2SAT 98; BMI 54.8
--- OUTSIDE RECORDS SUMMARY | 2024-04-04 12:25 | XMS_ITS | Encounter Summary ---
Author Organization [facility] [place], Address [address] [place] [address] Phone Care Team Providers Care Buckle Sewer Name Role Phone Georgette Angelo MD Primary Care Provider [phone] Encounter Details Date Type Department Care Team (Late Contact Info) Description 05/01/2021 Documentation Only [facility] [address] [place] [address] Georgette Angelo MD [facility] [address] [place] [address] Social History Tobacco Use Types Packs/Day Years Used Date Smoking Tobacco: Never Assessed Sex and Gender Information Value Date Recorded Sex Assigned at Not on file Legal Sex Male 4:14 PM EST Gender Identity Not on file Sexual Orientation Not on file documented as of this encounter Plan of Treatment Upcoming Encounters Date Type Department Care Team (Late Contact Info) Description 07/11/2024 1:45 PM EDT Office Visit [facility] [address] [place] [address] Kev Lockett MD [address] [place] [address] [place] [address] documented as of this encounter Visit Diagnoses Not on filedocumented in this encounter Care Teams Buckle Sewer Relationship Specialty Start Date End Date Georgette Angelo MD [facility] [place] [address] [place] PCP - General Internal Medicine 04/30/21 documented as of this encounter
--- OUTSIDE RECORDS SUMMARY | 2024-04-04 12:25 | XMS_ITS | Encounter Summary ---
Author Organization [facility] [place], Address [address] [place] [address] Phone Care Team Providers Care Senior C Web Developer Name Role Phone Georgette Angelo MD Primary Care Provider [phone] Encounter Details Date Type Department Care Team (Late Contact Info) Description 07/16/2023 Documentation Only [facility] [address] [place] [address] [place], [place] [address] [place] [address] Social History Tobacco Use Types Packs/Day Years Used Date Smoking Tobacco: Never Smokeless Tobacco: Never Alcohol Use Standard Drinks/Week Comments Never 0 (1 standard drink = 0.6 oz pur e alcohol) Sex and Gender Information Value Date Recorded Sex Assigned at Not on file Legal Sex Male 4:14 PM EST Gender Identity Not on file Sexual Orientation Not on file documented as of this encounter Plan of Treatment Upcoming Encounters Date Type Department Care Team (Late st Contact Info) Description 07/11/2024 1:45 PM EDT Office Visit [facility] [address] [place] [address] Kev Lockett MD [address] [place] [address] documented as of this encounter Visit Diagnoses Not on filedocumented in this encounter Care Teams Senior C Web Developer Relationship Specialty Start Date End Date Georgette Angelo MD [facility] [place] [place] [address] [place] PCP - General Internal Medicine 04/30/21 documented as of this encounter
--- OUTSIDE RECORDS SUMMARY | 2024-04-04 12:25 | XMS_ITS | Encounter Summary ---
Author Organization [facility] [place], Address [address] [place] [address] Phone Care Team Providers Care Restaurant General Manager Name Role Phone Georgette Angelo MD Primary Care Provider [phone] Encounter Details Date Type Department Care Team (Late Contact Info) Description 05/01/2021 Documentation Only [facility] [address] [place] [address] Georgette Angelo MD [facility] [address] [place] [address] Social History Tobacco Use Types Packs/Day Years [...] Visit [facility] [address] [place] [address] Kev Lockett MD [address] [place] [address] [place] [address] documented as of this encounter Visit Diagnoses Not on filedocumented in this encounter Care Teams Restaurant General Manager Relationship Specialty Start Date End Date Georgette Angelo MD [facility] [place] [address] [place] PCP - General Internal Medicine 04/30/21 documented as of this encounter
--- OUTSIDE RECORDS SUMMARY | 2024-04-04 12:25 | XMS_ITS | Encounter Summary ---
Author Organization [facility] [place], Address [address] [place] [address] Phone Care Team Providers Care Produce Specialist Name Role Phone Georgette Angelo MD Primary Care Provider [phone] Encounter Details Date Type Department Care Team (Late Contact Info) Description 05/01/2021 Documentation Only [facility] [address] [place] [place] [address] Georgette Angelo MD [facility] [address] [place] [address] Social History Tobacco Use Types Packs/Day Years [...] Visit [facility] [address] [place] [place] [address] Kev Lockett MD [address] [place] [address] [place] [address] documented as of this encounter Visit Diagnoses Not on filedocumented in this encounter Care Teams Produce Specialist Relationship Specialty Start Date End Date Georgette Angelo MD [facility] [place] [address] [place] PCP - General Internal Medicine 04/30/21 documented as of this encounter
--- OUTSIDE RECORDS SUMMARY | 2024-04-04 12:25 | XMS_ITS | Clinical Summary ---
Author Organization [facility] Address [address] [place] [address] Phone Care Team Providers Care Dietetic Technician Registered Name Role Phone Georgette Angelo MD Primary Care Provider [phone] Allergies No known active allergies Medications cholecalciferol (VITAMIN D-3) 25 MCG (1000 UT) capsule Active Active Problems Problem Noted Date Diagnosed Date Nonalcoholic steatohepatitis (CURIEL) 07/08/2021 Polycystic kidney, not otherwise specified 05/16 Hypercholesterolemia 05/16/2021 Family History Medical History Relation Comments Autosomal Dominant Polycystic Kidney Disease Fat her and his mothers side Diabetes Father Hypertension Father and mothers side Kidney disease Father and his mothers side Polycystic kidney disease Father Diabetes Mother Relation Status Comments Father Alive Mother Alive Social History Tobacco Use Types Packs/Day Years Used Date Smoking Tobacco: Never Smokeless Tobacco: Never Alcohol Use Standard Drinks/Week Comments Never 0 (1 standard drink = 0.6 oz pur e alcohol) Sex and Gender Information Value Date Recorded Sex Assigned at Not on file Legal Sex Male 4:14 PM EST Gender Identity Not on file Sexual Orientation Not on file Last Filed Vital Signs Vital Sign Reading Time Taken Comments Blood Pressure 136/80 07/06/2023 2:12 PM EDT Pulse - - Temperature - - Respiratory Rate - - Oxygen Saturation - - Inhaled Oxygen Concentration - - Weight - - Height - - Body Mass Index - - Plan of Treatment Upcoming Encounters Date Type Department Care Team ([facility] st Contact Info) Description 07/11/2024 1:45 PM EDT Office Visit [facility], [address] [place] [phone] Kev Lockett MD [address] [place] [id number] Health Maintenance Due Date Last Done Comments Hepatitis B Vaccine (3 of 3 - 3-dose series) 05/13/2001 03/18/2001, 2000 Pneumococcal Vaccine: Pediat rics (0 to 5 Years) and At-Risk Patients (6 to 64 Years) (1 of 2 - PCV) 2006 01/18/2001, 2000, 2000 Influenza Vaccine (#1) 2023 Insurance [facility] MEDICAID Care Teams Dietetic Technician Registered Relationship Specialty Start Date End Date Georgette Angelo MD [facility] [place] [address] [place], [place] PCP - General Internal Medicine 04/30/21
--- OUTSIDE RECORDS SUMMARY | 2024-04-04 12:25 | XMS_ITS | Encounter Summary ---
Author Organization [facility] [place], Address [address] [place] [address] Phone Care Team Providers Care Appliance Technician Name Role Phone Georgette Angelo MD Primary Care Provider [phone] Encounter Details Date Type Department Care Team (Late Contact Info) Description 05/01/2021 Documentation Only [facility] [address] [place] [address] Georgette Angelo MD [facility] [address] [place] [address] Social History Tobacco Use Types Packs/Day Years [...] [facility] [address] [place] [address] Kev Lockett MD [address] [place] [address] [place] [address] documented as of this encounter Visit Diagnoses Not on filedocumented in this encounter Care Teams Appliance Technician Relationship Specialty Start Date End Date Georgette Angelo MD [facility] [place] [address] [place] PCP - General Internal Medicine 04/30/21 documented as of this encounter
== END 2024-04-04 11:33 | disposition home or self-care (01) ==
PROVIDERS: PCP Internal Medicine; Visit Provider Internal Medicine
DX: I10 Essential (primary) hypertension (principal); E66.01 Morbid (severe) obesity due to excess calories; Z68.43 Body mass index [BMI] 50.0-59.9, adult; R73.01 Impaired fasting glucose; L21.9 Seborrheic dermatitis, unspecified

== ENCOUNTER → 2024-04-04 11:12 | Outpatient (BNVA) | payer OTHER, SELFPAY | PROVIDERS: PCP Internal Medicine; Visit Provider Internal Medicine ==

== ENCOUNTER 2024-06-18 12:10 | Emergency (ER) | payer OTHER, SELFPAY ==
[2024-06-18 12:16] VITALS: BP 128/46; PULSE 85; RESP 18; TEMP 36.9; O2SAT 98; BMI 53.3
--- NOTE | 2024-06-18 12:17 | ED_ITS ---
HPI - General Adult General Chief complaint: Upper Respiratory Symptoms Stated complaint: cough, sore throat, fever x 5 days Time Seen by Provider: 06/18/24 13:09 Source: patient, RN notes reviewed and old records reviewed Mode of arrival: ambulatory Limitations: no limitations History of Present Illness ED Provider: Monica HPI narrative: Patient is a 24-year-old male with history of asthma, hypertension, polycystic kidney disease, Orellana, obesity, iron deficiency anemia presenting to the emergency department with complaint of cough, shortness of breath, sore throat, headaches, body aches, fatigue since Thursday. Denies fevers. States sore throat is primary complaint. Denies any known sick contacts. MD complaint: sore throat, cough Onset (ago): week(s) Related Data Previous Rx's ?Medication ?Instructions ?Recorded cyanocobalamin (vitamin B-12) 1,000 mcg PO DAILY #30 caps 05/29/22 1,000 mcg capsule clindamycin 1.2 % (1 % 1 appl topical QPM #45 grams 04/20/23 base)-benzoyl peroxide 5 % topical gel ascorbic acid (vitamin C) 500 mg 500 mg PO DAILY #90 tabs 10/19/23 tablet (Vitamin C) ferrous sulfate 325 mg (65 mg 325 mg PO DAILY #90 tabs 10/19/23 iron) tablet folic acid 1 mg tablet 1 mg PO DAILY #90 tabs 10/19/23 ketoconazole 2 % shampoo 1 appl topical 2XW #120 mL 06/12/24 Allergies Allergy/AdvReac Type Severity Reaction Status Date / Time No Known Allergies Allergy Verified 06/18/24 12:20 [No Known Allergies*] Review of Systems Review of Systems: As per HPI Yes all other systems are reviewed and are negative Constitutional: Constitutional: Reports as per HPI PMF Past Medical History Medical History (Updated 06/18/24 @ 13:14 by Salome Anderson NP) Annual physical exam Obesity Asthma Polycystic kidney disease ORELLANA (nonalcoholic steatohepatitis) Surgical History (Updated 04/04/24 @ 11:17 by ALEXANDRE Bernal) No pertinent past surgical history Family History Family History Mother Diabetes Father Diabetes Polycystic kidney disease Sister No problems noted. Social History Social History Housing: Other Alcohol intake: never Patient Tobacco Use Status: Never used Tobacco Tobacco use type: Cigarette e-Cigarette/Vaping Use: Never Used Second Hand Smoke Exposure: No Advance Directives: No Advance Directives Information Provided: No service: No Current occupational status: employed Cognitive needs: No Hearing needs: No Vision needs: No Physical Exam ED Vital Signs: Vital Signs - 24 hr 06/18/24 12:16 Temperature 98.5 F Pulse Rate 85 Respiratory Rate 18 Blood Pressure 128/46 L Pulse Oximetry 98 Oxygen Delivery Method Room Air BMI result Body Mass Index 53.3 Vital signs have been reviewed and appear to be correct. Blood pressure normal. Heart rate normal. Respiratory rate normal. Temperature normal. Oxygen saturation normal. Const General: cooperative, healthy appearing and no acute distress Orientation/consciousness: oriented to person, oriented to place, oriented to time and patient oriented x3 Limitations: no limitations HENMT Head: Yes normocephalic and Yes atraumatic Ears: external ears normal, TM's normal bilaterally and EAC's normal General nose exam: Normal external nose present and Normal nasal mucous membranes and turbinates present Face and sinus: Yes face symmetric Mouth: Normal oral and palatal mucosa present, oropharynx normal, moist mucous membranes, no audible dysphonia, no drooling and no trismus Throat: Yes uvula midline, Yes abnormal tonsil (erythema, edema, 2+ bilat, no exudate), No peritonsillar mass and No uvular edema Eyes Pupils: Equal, round and reactive pupils present Neck Neck: Yes normal visual inspection and Yes supple Lymphatic: lymphadenopathy right anterior cervical single and small Resp Effort & Inspection: normal respiratory effort and able to speak in complete sentences Auscultation: clear to auscultation bilaterally Cardio Rate: regular rate Rhythm: regular rhythm Heart sounds: S1 normal heart sound present and S2 normal heart sound present GI Palpation (GI): Soft to palpation and nontender Auscultation: normoactive bowel sounds General: Yes no CVA tenderness Back/Spine/Pelvis Back: no CVA tenderness Skin General skin exam: elasticity normal and turgor normal Neuro General: oriented to person, oriented to place, oriented to time, patient oriented x3, moves all extremities, no focal motor deficits and CN's II-XI intact bilaterally Cranial nerves: Yes Equal, round and reactive pupils present Cognition (Neuro): normal cognition Extrem General: Yes full ROM, Yes no pedal edema and Yes no calf tenderness Psych Mental Status: mental status grossly normal Affect: normal affect Thought process: Normal thought process present Course Course Course Narrative: RME, this is a rapid medical exam performed by Steven Mcmanus please refer to primary provider for complete H&P- 24-year-old male presents for evaluation of a cough, sore throat and fevers with the last 5 days. He also endorses a headache. Plan for viral swabs and strep testing. Medical Decision Making Medical Decision Making [facility] Narrative: Patient is a 24-year-old male with history of asthma, hypertension, polycystic kidney disease, Orellana, obesity, iron deficiency anemia presenting to the emergency department with complaint of cough, shortness of breath, sore throat, headaches, body aches, fatigue since Thursday. On exam patient is awake, A+Ox3, VS WNL, afebrile, normal neurological exam without focal deficits, physical exam findings as above. Given reported symptoms and physical exam findings, initial differential includes but is not limited to strep versus viral pharyngitis, other viral illness, COVID, flu. Viral panel positive for COVID-19. Strep swab negative. Patient treated with 1 time dose of dexamethasone in the emergency department. Patient updated on results and all questions answered. Return precautions discussed. Advised patient to wear mask at work while symptomatic. Patient verbalized understanding of and agreement with plan. Differential Diagnosis Differential Diagnoses: The differential diagnosis associated with the presentation includes As per [facility] Admission/Observation Consideration of admission/observation: Escalation of care including admission/observation considered Patient would have been admitted to the hospital had their work up had any findings where hospital admission was appropriate and their clinical presentation warranted hospital admission. Lab Data [facility] Lab Attestation statement: I reviewed the patient's lab results. as per [facility] Labs: Lab Results 06/18/24 Range/Units 12:23 Influenza Type A (PCR) NEGATIVE (Negative) Influenza Type B (PCR) NEGATIVE (Negative) RSV RNA Qual (PCR) NEGATIVE (Negative) SARS-CoV-2 RNA (RT-PCR) POSITIVE A (Negative) S. pyogenes GrpA NATANAEL Negative (Negative) External Record Review External record reviewed: Inpatient record, Office record and Outpatient record Prescription Management I considered prescription management with: Other Discharge Plan Discharge Clinical Impression: COVID-19 Patient Disposition: Home, Self-Care Instructions: COVID-19 (Coronavirus Disease 2019) (ED) Additional Instructions: You were evaluated in the emergency department today for sore throat, cough. Your COVID test was resulted as positive. You should continue to wear a mask while symptomatic while at work. Be sure to get plenty of rest, plenty of fluids. You can take 650 mg of Tylenol or 600 mg ibuprofen every 6 hours as needed for fever or discomfort. Return to the emergency department with worsening shortness of breath, chest pain, fever that does not improve with Tylenol or ibuprofen, persistent vomiting, or any other concerning symptoms. You should follow-up with your primary care provider. Prescriptions: No Action cyanocobalamin (vitamin B-12) 1,000 mcg capsule 1,000 mcg PO DAILY Qty: 30 3RF ketoconazole 2 % shampoo 1 appl topical 2XW Qty: 120 0RF clindamycin-benzoyl peroxide 1.2 %(1 % base) -5 % gel 1 appl topical QPM Qty: 45 2RF ascorbic acid (vitamin C) [Vitamin C] 500 mg tablet 500 mg PO DAILY Qty: 90 1RF ferrous sulfate 325 mg (65 mg iron) tablet 325 mg PO DAILY Qty: 90 1RF folic acid 1 mg tablet 1 mg PO DAILY Qty: 90 1RF Stand Alone Forms: Work/School Release Print Language: Greek
[2024-06-18 13:02] LABS: IDNOW Serial# 55D5AD1C
[2024-06-18 13:03] LABS: Strep A Nucleic Acid Negative (Negative)
--- OUTSIDE RECORDS SUMMARY | 2024-06-18 13:07 | XMS_ITS | Encounter Summary ---
Author Organization [facility] Address [address] [place] [address] Phone Care Team Providers Care Credit Advisor Name Role Phone Georgette Angelo MD Primary Care Provider [phone] Encounter Details Date Type Department Care Team (Late st Contact Info) Description 05/01/2021 Documentation Only [facility] [address] [place] [address] Georgette Angelo MD [facility] INTERNAL [address] [place] [address] Social History Tobacco Use Types Packs/Day Years Used Date Smoking Tobacco: Never Assessed Sex and Gender Information Value Date Recorded Sex Assigned at Not on file Legal Sex Male 4:14 PM EST Gender Identity Not on file Sexual Orientation Not on file documented as of this encounter Plan of Treatment Upcoming Encounters Date Type Department Care Team (Late Contact Info) Description 07/11/2024 9:15 AM EDT Office Visit [facility] [address] [place] [address] Kev Lockett MD [address] [place] [address] [place] [address] documented as of this encounter Visit Diagnoses Not on filedocumented in this encounter Care Teams Credit Advisor Relationship Specialty Start Date End Date Georgette Angelo MD [facility] INTERNAL [place] [address] [place] [address] PCP - General Internal Medicine 04/30/21 documented as of this encounter
--- OUTSIDE RECORDS SUMMARY | 2024-06-18 13:07 | XMS_ITS | Clinical Summary ---
Author Organization [facility] Address [address] [place] [address] Phone Care Team Providers Care Janitor Head Name Role Phone Georgette Angelo MD Primary Care Provider [phone] Allergies No known active allergies Medications cholecalciferol (VITAMIN D-3) 25 MCG (1000 UT) capsule Active Active Problems Problem Noted Date Diagnosed Date Nonalcoholic steatohepatitis (CURIEL) 07/08/2021 Polycystic kidney, not otherwise specified 05/16 Hypercholesterolemia 05/16/2021 Encounters Date Type Department Care Team Description 05/04/2024 Telephone [facility], [address] [place] [address] Heike Terry MA from Last 3 Months Family History Medical History Relation Comments Autosomal [...] Team (Late st Contact Info) Description 07/11/2024 9:15 AM EDT Office Visit [facility] [place], [address] [place] [address] Kev Lockett MD [address] [place] [id number] Health Maintenance Due Date Last Done Comments Hepatitis B Vaccine (3 of 3 - 3-dose series) 05/13/2001 03/18/2001, 2000 Pneumococcal Vaccine: Peds ( 0 to 5 Years) and At-Risk Patients (6 to 49 Years) (1 of 2 - PCV) 05/31/2019 01/18/2001, 2000, 2000 Influenza Vaccine (Season Ended) [address] [place] [address] [place] [address] Medicaid Care Teams Janitor Head Relationship Specialty Start Date End Date Georgette Angeol MD [facility] INTERNAL [place] [address] [place], [place] PCP - General Internal Medicine 04/30/21
--- OUTSIDE RECORDS SUMMARY | 2024-06-18 13:07 | XMS_ITS | Encounter Summary ---
Author Organization [facility] Address [address] [place] [address] Phone Care Team Providers Care Attending Psychiatrist Name Role Phone Georgette Angelo MD Primary Care Provider [phone] Encounter Details Date Type Department Care Team (Late st Contact Info) Description 05/01/2021 Documentation Only [facility] [address] [place] [address] Georgette Angelo MD [facility] INTERNAL [address] [place] [address] Social History Tobacco Use Types Packs/Day Years [...] Visit [facility] [address] [place] [address] Kev Lockett MD [address] [place] [address] [place] [address] documented as of this encounter Visit Diagnoses Not on filedocumented in this encounter Care Teams Attending Psychiatrist Relationship Specialty Start Date End Date Georgette Angelo MD [facility] INTERNAL [place] [address] [place] [address] PCP - General Internal Medicine 04/30/21 documented as of this encounter
--- OUTSIDE RECORDS SUMMARY | 2024-06-18 13:07 | XMS_ITS | Encounter Summary ---
Author Organization [facility] Address [address] [place] [address] Phone Care Team Providers Care Water Chaser Name Role Phone Georgette Angelo MD Primary Care Provider Encounter Details Date Type Department Care Team (Late Contact Info) Description 07/16/2023 Documentation Only [facility] [address] [place] [address] Heike Terry [place] [address] [place] [phone] Social History Tobacco Use Types Packs/Day Years [...] Visit [facility] [address] [place] [address] Kev Lockett MD [address] [place] [address] documented as of this encounter Visit Diagnoses Not on filedocumented in this encounter Care Teams Water Chaser Relationship Specialty Start Date End Date Georgette Angelo MD [facility] INTERNAL [place] [address] [place], [place] PCP - General Internal Medicine 04/30/21 documented as of this encounter
--- OUTSIDE RECORDS SUMMARY | 2024-06-18 13:07 | XMS_ITS | Encounter Summary ---
Author Organization [facility] Address [address] [place] [address] Phone Care Team Providers Care Human Resources Training Manager Name Role Phone Georgette Angelo MD Primary Care Provider [phone] Encounter Details Date Type Department Care Team (Late st Contact Info) Description 05/01/2021 Documentation Only [facility] [address] [place] [address] Georgette Angelo MD [facility] INTERNAL [address] [place] [address] Social History Tobacco Use Types Packs/Day Years [...] Visit [facility] [address] [place] [address] Kev Lockett MD [address] [place] [address] [place] [address] documented as of this encounter Visit Diagnoses Not on filedocumented in this encounter Care Teams Human Resources Training Manager Relationship Specialty Start Date End Date Georgette Angelo MD [facility] INTERNAL [place] [address] [place] [address] PCP - General Internal Medicine 04/30/21 documented as of this encounter
--- OUTSIDE RECORDS SUMMARY | 2024-06-18 13:07 | XMS_ITS | Encounter Summary ---
Author Organization [facility] Address [address] [place] [address] Phone Care Team Providers Care Title Curator Name Role Phone Georgette Angelo MD Primary Care Provider [phone] Encounter Details Date Type Department Care Team (Late st Contact Info) Description 05/01/2021 Documentation Only [facility] [address] [place] [address] Georgette Angelo MD [facility] INTERNAL [address] [place] [address] Social History Tobacco Use Types Packs/Day Years [...] Visit [facility] [address] [place] [address] Kev Lockett MD [address] [place] [address] [place] [address] documented as of this encounter Visit Diagnoses Not on filedocumented in this encounter Care Teams Title Curator Relationship Specialty Start Date End Date Georgette Angelo MD [facility] INTERNAL [place] [address] [place] [address] PCP - General Internal Medicine 04/30/21 documented as of this encounter
[2024-06-18 13:09] LABS: Influenza A PCR NEGATIVE (Negative); Influenza B PCR NEGATIVE (Negative); Resp Syncy Virus RNA Qual PCR NEGATIVE (Negative); SARS COV2 PCR INHOUSE POSITIVE (Negative)
[2024-06-18] MEDS: dexAMETHasone sod phosphate 10 MG/ML VIAL PO (13:47)
[2024-06-18 13:55] VITALS: O2SAT 98
[2024-06-18 13:56] VITALS: BP 126/84; PULSE 88; RESP 16; TEMP 37; O2SAT 98
== END 2024-06-18 13:57 | disposition home or self-care (01) ==
PROVIDERS: Physician Assistant; Emergency Provider Emergency Medicine; PCP Internal Medicine
DX: U07.1 COVID-19 (principal); R05.9 Cough, unspecified; J02.9 Acute pharyngitis, unspecified; R50.9 Fever, unspecified
CPT/HCPCS: 0241U; 87651; 99283; J1100

== ENCOUNTER 2024-07-04 13:26 | Outpatient (AMB) | payer OTHER, SELFPAY ==
--- NOTE | 2024-07-04 13:30 | A.OFFPC_ITS ---
Vital Signs 07/04/24 13:44 Height 5 ft 10 in Weight 371 lb 4 oz BMI 53.3 BP 158/100 H Blood Pressure Location Lt brachial Position Sitting Pulse 80 Pulse Source Pulse Oximeter Temp 97.1 F Temp Source Temporal Artery Scan Pulse Oximetry (%) 98 Oxygen Delivery Method Room Air Intake Visit Reasons: obesity Activity Assistant Required: No Accompanied by: Self / Same As Patient Allergies No Known Allergies [No Known Allergies*] Allergy (Verified 07/04/24 13:39) Medication List - Last Reconciled 07/04/24 by Georgette Angelo MD ascorbic acid (vitamin C) (Vitamin C) 500 mg PO DAILY clindamycin-benzoyl peroxide 1.2 %(1 % base) -5 % 1 appl topical QPM cyanocobalamin (vitamin B-12) 1,000 mcg PO DAILY ferrous sulfate 325 mg PO DAILY folic acid 1 mg PO DAILY ketoconazole 2% 1 appl topical 2XW Tobacco use date assessed: 07/04/24 Dental Screening Dental Screen Date: 07/04/24 Did you have a dental visit in the last 12 months?: Yes Did you have a dental problem in the last 6 months where you did not have access to dental care?: No Was dental information given to patient?: Patient has dentist [facility] Medical History (Updated 06/18/24 @ 13:14 by Salome Anderson NP) Annual physical exam Obesity Asthma Polycystic kidney disease CURIEL (nonalcoholic steatohepatitis) Surgical History No pertinent past surgical history Family History Mother Diabetes Father Diabetes Polycystic kidney disease Sister No problems noted. Social History Housing: Other Alcohol intake: never Patient Tobacco Use Status: Never used Tobacco Tobacco use type: Cigarette e-Cigarette/Vaping Use: Never Used Second Hand Smoke Exposure: No service: No Current occupational status: employed Cognitive needs: No Hearing needs: No Vision needs: No Questionnaire PHQ-9 Over the last 2 weeks, how often have you been bothered by any of the following problems? 1. Little interest or pleasure in doing things: not at all 2. Feeling down, depressed, or hopeless: not at all 3. Trouble falling or staying asleep, or sleeping too much: not at all 4. Feeling tired or having little energy: not at all 5. Poor appetite or overeating: several days 6. Feeling bad about yourself - or that you are a failure or have let yourself or your family down: not at all 7. Trouble concentrating on things, such as reading the newspaper or watching television: not at all 8. Moving or speaking so slowly that other people could have noticed. Or the opposite - being so fidgety or restless that you have been moving around a lot more than usual: not at all 9. Thoughts that you would be better off or of hurting yourself in some way: not at all Total score: 1 Depression Screening Interpretation: Negative Depression Screening Done: Yes 32074 - PHQ-9 Billing: Yes Source: Developed by Drs. Nicholas Howell, Marlys Sykes, Jared Fox and colleagues, with an educational sameera from [employer]. Thrive Questionnaire Date Thrive assessed: 07/04/24 I am a: Patient What is your living situation today?: I have a steady place to live Within the past 12 months, did the food you bought not last and you didn't have the money to get more?: I choose not to answer this question Within the past 12 months, did you worry whether your food would run out before you got money to buy more?: Never true Do you have trouble paying for medicines?: No Do you have trouble getting transportation to medical appointments?: No Do you have trouble paying your heating and electricity bill?: No Do you have trouble taking care of your child, family member or friend?: No Do you have trouble with day-to-day activities such as bathing, preparing meals, shopping, managing finances, etc.?: No Are you currently unemployed and looking for a job?: No Are you interested in more education?: I choose not to answer this question Please select the resources that you would like help with: None Currently or been in a relationship where the following occur: I choose not to answer THRIVE Score: 0 AUDIT C Alcohol Use Questionnaire (AUDIT-C) 1. How often do you have a drink containing alcohol?: Never 3. How often do you have six or more drinks on one occasion?: Never Total Score: 0 Score Reviewed/Action Taken: No RL-7 AMB Questionnaire LR-7 Date RL - 7 assessed: 07/04/24 Feeling nervous, anxious, or on edge: 1 = Several days Not being able to stop or control worryin = Several days Worrying too much about different things: 0 = Not at all Trouble relaxin = Several days Being so restless that it is hard to sit still: 1 = Several days Becoming easily annoyed or irritable: 1 = Several days Feeling afraid as if something awful might happen: 1 = Several days Total RL-7 score (0-4 normal; 5-9 mild; 10-14 moderate; 15-21 severe): 6 Source: Developed by Drs. Nicholas Howell, Marlys Sykes, Jared Fox and colleagues, with an educational sameera from [employer]. RL-7 Assessment Billing RL-7 Assessment Tool: RL-7 Assessment 57196 Physical exam (Primary Care) Vital Signs: Last Vital Signs Temp 97.1 F 07/04/24 13:44 Pulse 80 07/04/24 13:44 BP 158/100 H 07/04/24 13:44 Pulse Ox 98 07/04/24 13:44 Oxygen Delivery Method Room Air 07/04/24 13:44 BMI result Body Mass Index 53.3 Tobacco/Smoking Status: Tobacco use Status Tobacco use date assessed 07/04/24 07/04/24 13:41 Patient Tobacco Use Status Never used Tobacco 07/04/24 13:31 Tobacco use type Cigarette 07/04/24 13:31 e-Cigarette/Vaping Use Never Used 07/04/24 13:31 PHQ-9: PHQ-9 Score PHQ-9: Total score 1 07/04/24 14:00 Depression Screening Interpretation: Negative Thrive Assessment: Date of Thrive Assessment Date Thrive assessed 07/04/24 07/04/24 13:41 Currently or been in a relationship where the following occur: I choose not to answer Const General: alert; No acute distress Eyes Conjunctivae: conjunctivae normal Resp Auscultation: clear to auscultation bilaterally Cardio Rate: regular rate Rhythm: regular rhythm GI Inspection: Yes normal to inspection Extrem General: Yes normal to inspection and No edema Coding Level of Care Code Est Pt Level 4 (49997) Complex EM visit Add On G2211 Diagnoses Morbid obesity due to excess calories E66.01 CURIEL (nonalcoholic steatohepatitis) K75.81 Hypertension I10 Impaired fasting blood sugar R73.01 Additional Codes RL-7 Assessment Billing - RL-7 Assessment Tool: RL-7 Assessment 23217 ([id number]) PHQ-9 - 01892 - PHQ-9 Billing: Yes ([id number]) Assessment & Plan Assessment & Plan (1) Morbid obesity due to excess calories: Code(s): E66.01 - Morbid (severe) obesity due to excess calories Category: Medical Plan: Patient is advised to eat healthy, keep well hydrated, keep active and have adequate sleep. (2) CURIEL (nonalcoholic steatohepatitis): Code(s): K75.81 - Nonalcoholic steatohepatitis (CURIEL) Category: Medical Plan: Low-fat diet and exercise (3) Hypertension: Comment: BP at home is good Code(s): I10 - Essential (primary) hypertension Category: Medical Plan: Patient is advised to monitor blood pressure and record. (4) Impaired fasting blood sugar: Code(s): R73.01 - Impaired fasting glucose Category: Medical Plan: Patient is reminded about blood work. Decrease the amount of carbohydrate intake, pasta, bread, rice and potatoes are all sugar and that is aside from all the sweet stuff, remember that fruits are good but they are Sweet also. Plan History of Present Illness The patient is a 24-year-old male presenting for a follow-up examination following an ER visit in May 2024 due to a COVID-19 infection. His infection was managed conservatively without additional interventions at that time. The patient has established diagnoses of obesity, essential hypertension, polycystic kidney disease, asthma, and hepatic steatosis. His recent focus has been on lifestyle modifications, notably dietary changes to include a low-sodium diet, resulting in an 11-pound weight reduction. This follows advice to manage his blood pressure, already high, potentially impacting cardiac health. He has been reminded of necessary blood testing for monitoring additional health parameters such as blood sugar and cholesterol levels. Health Maintenance - Low-fat diet and regular exercise emphasized. - Blood pressure monitoring advised with reminders for blood work focusing on diabetes management, sugar, and cholesterol levels. - Recent tetanus vaccination confirmed as up-to-date. Social History - Obesity management: Significant effort in dietary adjustments and weight reduction. - Reduced sodium intake. - Engagement in physical activity to support weight loss and health improvement. - Conscious efforts to avoid high-sugar and high-sodium beverages. Review of Systems - General: Reports weight reduction. - Respiratory: Reports history of asthma. - Cardiovascular: Reports history of essential hypertension. - Gastrointestinal: Reports history of hepatic steatosis. Physical Exam Results Plan A follow-up visit centered on managing chronic health conditions and preventative care. The patient is advised to complete blood tests to monitor glucose and lipids for comprehensive management of his hypertension and hepatic steatosis. An ongoing management plan through dietary modification to include low-fat, low-sodium intake is discussed alongside regular exercise to support ongoing weight reduction. The importance of frequent blood pressure monitoring and follow-up with recorded readings is stressed to evaluate the need for pharmacologic intervention should hypertension persist. Reassessment is scheduled for three months to reassess health status and management outcomes. Patient was informed and verbally consented to the use of an ambient scribe for clinic note documentation during this visit. Discussion Notes I explained the need for continual monitoring of the patient?s blood pressure and potential risks if unmanaged, including possible cardiac enlargement. The focus on weight loss and dietary modification as supportive measures was discussed. I stressed the importance of regular blood pressure monitoring and keeping an accurate log of readings. The benefits of continuing his current lifestyle interventions were reinforced. The patient is to return for follow-up in three months, where we will revisit his blood pressure and potentially adjust his management strategy based on his blood work results. Patient Instructions - Monitor blood pressure regularly; record and bring results to next visit. - Continue low-fat, low-sodium diet and exercising. - Have blood work done at the lab soon for sugars and cholesterol. - Follow up in three months or sooner if you have issues. - Keep your vaccinations up to date. - Report any significant changes in health status immediately.
[2024-07-04 13:44] VITALS: BP 158/100; PULSE 80; TEMP 36.2; O2SAT 98; BMI 53.3
--- OUTSIDE RECORDS SUMMARY | 2024-07-04 13:47 | XMS_ITS | Encounter Summary ---
Author Organization [facility] Address [address] [place] [address] Phone Care Team Providers Care Cosmetic Sales Assistant Name Role Phone Georgette Angelo MD Primary Care Provider [phone] Encounter Details Date Type Department Care Team (Late Contact Info) Description 07/04/2024 Orders Only [facility] [address] [place] [address] Heike Terry [address] [place] [phone] Polycystic kidney, not otherwise specified (Primary Dx); Nonalcoholic steatohepatitis (CURIEL); Stage 3 chronic kidney disease, not otherwise specified (HCC) Social History Tobacco Use Types Packs/Day Years [...] Visit [facility] [address] [place] [address] Kev Lockett MD [address] [place] [address] Scheduled Orders Name Type Priority Associated Diagnoses Orde r Schedule CBC and Differential Lab Routine Polycystic kidney, not otherwise specified Nonalcoholic steatohepatitis (CURIEL) Stage 3 chronic kidney disease, not otherwise specified (HCC) Expected: 07/04/2024, Expires: 08/04/2025 Renal Function Panel Lab Routine Polycystic kidney, not otherwise specified Nonalcoholic steatohepatitis (CURIEL) Stage 3 chronic kidney disease, not otherwise specified (HCC) Expected: 07/04/2024, Expires: 08/04/2025 Urine Albumin / Creatinine Ratio Lab Routine Polycystic kidney, not otherwise specified Nonalcoholic steatohepatitis (CURIEL) Stage 3 chronic kidney disease, not otherwise specified (HCC) Expected: 07/04/2024, Expires: 08/04/2025 documented as of this encounter Visit Diagnoses Diagnosis Polycystic kidney, not otherwise specified- Primary Nonalcoholic steatohepatitis (CURIEL) Stage 3 chronic kidney disease, not otherwise specified (HCC) documented in this encounter Care Teams Cosmetic Sales Assistant Relationship Specialty Start Date End Date Georgette Angelo MD [address] [place], [place] PCP - General Internal Medicine 04/30/21 documented as of this encounter
--- OUTSIDE RECORDS SUMMARY | 2024-07-04 13:47 | XMS_ITS | Encounter Summary ---
Author Organization [facility] Address [address] [place] [address] Phone Care Team Providers Care Staff Radiographer Name Role Phone Georgette Angelo MD Primary Care Provider Encounter Details Date Type Department Care Team (Late st Contact Info) Description 05/01/2021 Documentation Only [facility] [address] [place] [address] Georgette Angelo MD [facility] [address] [place] [address] Social History Tobacco Use Types Packs/Day Years [...] Visit [facility] [address] [place] [address] Kev Lockett MD [address] [place] [address] [place] [address] documented as of this encounter Visit Diagnoses Not on filedocumented in this encounter Care Teams Staff Radiographer Relationship Specialty Start Date End Date Georgette Angelo MD [facility] [place] [address] [place] [address] PCP - General Internal Medicine 04/30/21 documented as of this encounter
--- OUTSIDE RECORDS SUMMARY | 2024-07-04 13:47 | XMS_ITS | Encounter Summary ---
Author Organization [facility] Address [address] [place] [address] Phone Care Team Providers Care Pie Bakery Laborer Name Role Phone Georgette Angelo MD Primary Care Provider [phone] Encounter Details Date Type Department Care Team (Late st Contact Info) Description 05/01/2021 Documentation Only [facility] [address] [place] [address] Georgette Angelo MD [facility] INTERNAL [address] [place] [address] Social History Tobacco Use Types Packs/Day Years [...] Visit [facility] [address] [place] [address] Kev Lockett MD [address] [place] [address] [place] [address] documented as of this encounter Visit Diagnoses Not on filedocumented in this encounter Care Teams Pie Bakery Laborer Relationship Specialty Start Date End Date Georgette Angelo MD [facility] [place] [address] [place] [address] PCP - General Internal Medicine 04/30/21 documented as of this encounter
--- OUTSIDE RECORDS SUMMARY | 2024-07-04 13:47 | XMS_ITS | Clinical Summary ---
Author Organization [facility] Address [address] [place] [address] Phone Care Team Providers Care Cash Manager Name Role Phone Georgette Angelo MD Primary Care Provider [phone] Allergies No known active allergies Medications cholecalciferol (VITAMIN D-3) 25 MCG (1000 UT) capsule Active Active Problems Problem Noted Date Diagnosed Date Nonalcoholic steatohepatitis (CURIEL) 07/08/2021 Polycystic kidney, not otherwise specified 05/16 Hypercholesterolemia 05/16/2021 Encounters Date Type Department Care Team Description 07/04/2024 Orders Only [facility] [address] [place] [address] Heike Terry [place] Polycystic kidney, not otherwise specified (Primary Dx); Nonalcoholic steatohepatitis (CURIEL); Stage 3 chronic kidney disease, not otherwise specified (HCC) 05/04/2024 Telephone [facility] [address] [place] [place] [address] Heike Terry [place] from Last [...] Visit [facility] [place], [address] [place] [phone] Kev Lockett MD [address] [place] [address] Health Maintenance Due Date Last Done Comments Hepatitis B Vaccine (3 of 3 - 3-dose series) 05/13/2001 03/18/2001, 2000 Pneumococcal Vaccine: Peds ( 0 to 5 Years) and At-Risk Patients (6 to 49 Years) (1 of 2 - PCV) 05/31/2019 01/18/2001, 2000, 2000 Influenza Vaccine (Season Ended) [address] [place] [address] Medicaid Care Teams Cash Manager Relationship Specialty Start Date End Date Georgette Angelo MD [facility] [place] [address] [place], [place] PCP - General Internal Medicine 04/30/21
--- OUTSIDE RECORDS SUMMARY | 2024-07-04 13:47 | XMS_ITS | Encounter Summary ---
Author Organization [facility] Address [address] [place] [address] Phone Care Team Providers Care Dry Wall Installer Name Role Phone Georgette Angelo MD Primary Care Provider [phone] Encounter Details Date Type Department Care Team (Late Contact Info) Description 07/16/2023 Documentation Only [facility] [address] [place] [address] Heike Terry [place] [address] [place] [phone] Social History Tobacco Use Types Packs/Day Years [...] Visit [facility] [address] [place] [address] Kev Lockett MD [address] [place] [address] documented as of this encounter Visit Diagnoses Not on filedocumented in this encounter Care Teams Dry Wall Installer Relationship Specialty Start Date End Date Georgette Angelo MD [facility] [place] [address] [place], [place] PCP - General Internal Medicine 04/30/21 documented as of this encounter
--- OUTSIDE RECORDS SUMMARY | 2024-07-04 13:48 | XMS_ITS | Encounter Summary ---
Author Organization [facility] Address [address] [place] [address] Phone Care Team Providers Care Boat Canvas Maker And Installer Name Role Phone Georgette Angelo MD Primary Care Provider [phone] Encounter Details Date Type Department Care Team (Late st Contact Info) Description 05/01/2021 Documentation Only [facility] [address] [place] [address] Georgette Angelo MD [facility] INTERNAL [address] [place] [address] Social History Tobacco Use Types Packs/Day Years [...] Visit [facility] [address] [place] [address] Kev Lockett MD [address] [place] [address] [place] [address] documented as of this encounter Visit Diagnoses Not on filedocumented in this encounter Care Teams Boat Canvas Maker And Installer Relationship Specialty Start Date End Date Georgette Angelo MD [facility] [place] [address] [place] [address] PCP - General Internal Medicine 04/30/21 documented as of this encounter
--- OUTSIDE RECORDS SUMMARY | 2024-07-04 13:48 | XMS_ITS | Encounter Summary ---
Author Organization [facility] Address [address] [place] [address] Phone Care Team Providers Care Fitness Club Manager Name Role Phone Georgette Angelo MD Primary Care Provider [phone] Encounter Details Date Type Department Care Team (Late st Contact Info) Description 05/01/2021 Documentation Only [facility] [address] [place] [address] Georgette Angelo MD [facility] INTERNAL [address] [place] [address] Social History Tobacco Use Types Packs/Day Years [...] Visit [facility] [address] [place] [address] Kev Lockett MD [address] [place] [address] [place] [address] documented as of this encounter Visit Diagnoses Not on filedocumented in this encounter Care Teams Fitness Club Manager Relationship Specialty Start Date End Date Georgette Angelo MD [facility] [place] [address] [place] [address] PCP - General Internal Medicine 04/30/21 documented as of this encounter
== END 2024-07-04 14:08 | disposition home or self-care (01) ==
LOC: HO.HMCH 13:27
PROVIDERS: PCP Internal Medicine; Visit Provider Internal Medicine
DX: I10 Essential (primary) hypertension (principal); E66.01 Morbid (severe) obesity due to excess calories; Z68.43 Body mass index [BMI] 50.0-59.9, adult; K75.81 Nonalcoholic steatohepatitis (NASH); R73.01 Impaired fasting glucose

== ENCOUNTER → 2024-07-04 13:26 | Outpatient (BNVA) | payer OTHER, SELFPAY | PROVIDERS: PCP Internal Medicine; Visit Provider Internal Medicine | DX: E66.01 Morbid (severe) obesity due to excess calories (principal); Z68.43 Body mass index [BMI] 50.0-59.9, adult; K75.81 Nonalcoholic steatohepatitis (NASH); I10 Essential (primary) hypertension; R73.01 Impaired fasting glucose | CPT/HCPCS: 96127; 99212 ==

== ENCOUNTER 2024-07-19 09:26 | Outpatient (REF) | payer OTHER, SELFPAY ==
[2024-07-19 09:50] LABS: MANUAL DIFF FLAG NO
--- OUTSIDE RECORDS SUMMARY | 2024-07-19 10:00 | XMS_ITS | Encounter Summary ---
Author Organization [facility] Address [address] [place] [address] Phone Care Team Providers Care Furnace Unloader Name Role Phone Georgette Angelo MD Primary Care Provider [phone] Encounter Details Date Type Department Care Team (Late Contact Info) Description 05/01/2021 Documentation Only [facility] [address] [place] [address] Georgette Angelo MD [facility] INTERNAL [address] [place] [address] Social History Tobacco Use Types Packs/Day Years Used Date Smoking Tobacco: Never Assessed Sex and Gender Information Value Date Recorded Sex Assigned at Not on file Legal Sex Male 4:14 PM EST Gender Identity Not on file Sexual Orientation Not on file documented as of this encounter Plan of Treatment Upcoming Encounters Date Type Department Care Team (Late Contact Info) Description 07/21/2025 1:45 PM EDT Office Visit [facility] [address] [place] [address] Kev Lockett MD [address] [place] [address] [place] [address] documented as of this encounter Visit Diagnoses Not on filedocumented in this encounter Care Teams Furnace Unloader Relationship Specialty Start Date End Date Georgette Angelo MD [facility] [place] [address] [place] [address] PCP - General Internal Medicine 04/30/21 documented as of this encounter
[2024-07-19 10:20] LABS: Basophils Percent Auto 0.4 % (0-2); Eosinophils Absolute Auto 0.2 X10*3/uL (0.0-0.4); Eosinophils Percent Auto 2.2 % (0-4); Hematocrit 41.6 % (42.0-52.0); Imm Gran Abs Auto 0.02 X10*3/uL (0.00-0.03); Imm Gran Pct Auto 0.3 % (0.0-0.4); Immature Retic Fraction 13.1 % (2.3-13.4); Lymphocytes Absolute Auto 1.3 X10*3/uL (1.2-4.9); Lymphocytes Percent Auto 18.3 % (20-40); Mean Corpuscular HGB Conc 33.7 g/dl (31.0-36.0); Mean Corpuscular Hemoglobin 28.8 pg (27.0-33.0); Mean Corpuscular Volume 85.6 fL (80.0-98.0); Mean Platelet Volume 9.7 fL (9.4-12.4); Monocytes Absolute Auto 0.5 X10*3/uL (0.1-1.2); Monocytes Percent Auto 7.8 % (2-11); Neutrophils Absolute Auto 4.9 x10*3/uL (2.0-8.3); Platelet Count 251 X10*3/uL (160-400); Red Blood Count 4.86 X10*6/uL (4.60-5.80); Red Cell Distribution Width 13.2 % (11.0-16.0); Retic HGB Equivalent 32.3 pg (30.0-35.0); Reticulocyte Percent 2.1 % (0.5-1.8); Reticulocytes Absolute 0.101 X10*6/uL (0.026-0.095); White Blood Count 6.8 X10*3/uL (4.8-10.8)
[2024-07-19 10:22] LABS: Estimated Average Glucose 103 mg/dL; Hemoglobin A1c % 5.2 % (<6.0)
[2024-07-19 10:28] LABS: Appearance Urine Clear; Color Urine Yellow; Glucose Urine UA Negative (Negative); Leukocyte Esterase Urine Negative (Negative); Nitrite Urine Negative (Negative); Specific Gravity - Urine 1.015 (1.005-1.025); Urine Blood Negative (Negative); Urine Ketones Negative (Negative); Urine Protein Negative (Neg-Trace)
[2024-07-19 10:37] LABS: Bacteria Urine None Seen (None Seen); Hyaline Casts Urine 0-2 /LPF (0-2); RBC Urine 0-2 /HPF (0-2); Squamous Epithelial Cell Urine 0-2 /HPF (0-2); WBC Urine 0-5 /HPF (0-5)
[2024-07-19 10:46] LABS: Anion Gap 12 (12-20); Blood Urea Nitrogen 15 mg/dL (9-16); Calcium 9.4 mg/dL (8.4-10.2); Carbon Dioxide 27 mmol/L (22-29); Chloride 107 mmol/L (96-108); Estimated Glomerular Filt Rate > 60; Potassium 4.2 mmol/L (3.3-5.1); Sodium 142 mmol/L (135-145)
[2024-07-19 11:23] LABS: Folate 13.6 ng/mL (> or = 4.0); Vitamin B12 801 pg/mL (200-900)
[2024-07-19 11:25] LABS: Alanine Aminotransferase 48 U/L (0-40); Albumin Level 4.2 g/dL (3.5-5.0); Alkaline Phosphatase 98 U/L (39-117); Anion Gap 10 (12-20); Aspartate Amino Transferase 36 U/L (5-37); Bilirubin Total 0.4 mg/dL (0.0-1.0); Blood Urea Nitrogen 15 mg/dL (9-16); Calcium 9.5 mg/dL (8.4-10.2); Carbon Dioxide 28 mmol/L (22-29); Chloride 107 mmol/L (96-108); Cholesterol 159 mg/dL (<200); Estimated Glomerular Filt Rate > 60; Ferritin 241 ng/mL (20-250); Free T4 (Free Thyroxine) 1.07 ng/dL (0.71-1.85); Glucose Random 87 mg/dL (60-115); HDL Cholesterol 35 mg/dL (>40); Iron 54 mcg/dL (45-160); LDL Cholesterol Calculated 95 mg/dL (<100); Percent Iron Saturation 20 % (15-50); Potassium 4.2 mmol/L (3.3-5.1); Sodium 141 mmol/L (135-145); Thyroid Stimulating Hormone 1.22 uIU/mL (0.32-4.0); Total Iron Binding Capacity 269 mcg/dL (228-428); Total Protein 7.2 g/dL (6.5-8.0); Triglycerides 148 mg/dL (<150); Unsaturated Iron Binding 215 ug/dL
[2024-07-19 11:32] LABS: Microalbum/Creatinine Ratio Ur 9.4 ug/mg cr (<30)
== END 2024-07-19 09:27 | disposition home or self-care (01) ==
LOC: HO.LAB 09:26
PROVIDERS: Absent Provider Internal Medicine Nephrology; PCP Internal Medicine; Visit Provider Internal Medicine
DX: Q61.3 Polycystic kidney, unspecified (principal); K75.81 Nonalcoholic steatohepatitis (NASH); E66.9 Obesity, unspecified; E66.01 Morbid (severe) obesity due to excess calories; D50.9 Iron deficiency anemia, unspecified; E78.00 Pure hypercholesterolemia, unspecified
CPT/HCPCS: 36415; 80051; 80053; 80061; 81001; 82043; 82310; 82565; 82570; 82607; 82728; 82746; 83036; 83540; 84439; 84443; 84520; 85025; 85045

== ENCOUNTER 2024-10-18 16:08 | Outpatient (AMB) | payer OTHER, SELFPAY ==
[2024-10-18 16:12] VITALS: BP 148/100; PULSE 97; TEMP 36.3; O2SAT 99; BMI 54.7
--- NOTE | 2024-10-18 16:12 | A.OFFPC_ITS ---
Vital Signs 10/18/24 16:12 Height 5 ft 10 in Weight 381 lb BMI 54.7 BP 148/100 H Blood Pressure Location Lt brachial Position Sitting Pulse 97 Pulse Source Pulse Oximeter Temp 97.3 F Temp Source Temporal Artery Scan Pulse Oximetry (%) 99 Oxygen Delivery Method Room Air Intake Visit Reasons: Annual PE Allergies No Known Allergies (No Known Allergies*) Allergy (Verified 10/18/24 16:17) Medication List - Last Reconciled 10/18/24 by Georgette Angelo MD ascorbic acid (vitamin C) (Vitamin C) 500 mg PO DAILY cyanocobalamin (vitamin B-12) 1,000 mcg PO DAILY ferrous sulfate 325 mg PO DAILY folic acid 1 mg PO DAILY hydrochlorothiazide 25 mg PO DAILY ketoconazole 2% 1 appl topical 2XW Tobacco use date assessed: 10/18/24 Dental Screening Dental Screen Date: 10/18/24 Did you have a dental visit in the last 12 months?: No Did you have a dental problem in the last 6 months where you did not have access to dental care?: No Was dental information given to patient?: Patient declined HPI Annual PE HPI Details states BP at home is 130/90 PFSH Medical History Annual physical exam Obesity Asthma Polycystic kidney disease CURIEL (nonalcoholic steatohepatitis) Surgical History No pertinent past surgical history Family History Mother Diabetes Father Diabetes Polycystic kidney disease Sister No problems noted. Social History (Updated 10/18/24 @ 16:53 by Georgette Angelo MD) Housing: Other Alcohol intake: current Comment: once a year 1 drink Patient Tobacco Use Status: Never used Tobacco Tobacco use type: Cigarette e-Cigarette/Vaping Use: Never Used Second Hand Smoke Exposure: No service: No Current occupational status: employed Cognitive needs: No Hearing needs: No Vision needs: No Questionnaire PHQ-9 Over the last 2 weeks, how often have you been bothered by any of the following problems? 1. Little interest or pleasure in doing things: not at all 2. Feeling down, depressed, or hopeless: not at all 3. Trouble falling or staying asleep, or sleeping too much: not at all 4. Feeling tired or having little energy: not at all 5. Poor appetite or overeating: several days 6. Feeling bad about yourself - or that you are a failure or have let yourself or your family down: not at all 7. Trouble concentrating on things, such as reading the newspaper or watching television: not at all 8. Moving or speaking so slowly that other people could have noticed. Or the opposite - being so fidgety or restless that you have been moving around a lot more than usual: not at all 9. Thoughts that you would be better off or of hurting yourself in some way: not at all Total score: 1 Depression Screening Interpretation: Negative Depression Screening Done: Yes Source: Developed by Drs. Nicholas Howell, Marlys Sykes, Jared Fox and colleagues, with an educational sameera from [employer]. Thrive Questionnaire Date Thrive assessed: 06/27/24 I am a: Patient What is your living situation today?: I have a steady place to live Within the past 12 months, did the food you bought not last and you didn't have the money to get more?: I choose not to answer this question Within the past 12 months, did you worry whether your food would run out before you got money to buy more?: Never true Do you have trouble paying for medicines?: No Do you have trouble getting transportation to medical appointments?: No Do you have trouble paying your heating and electricity bill?: No Do you have trouble taking care of your child, family member or friend?: No Do you have trouble with day-to-day activities such as bathing, preparing meals, shopping, managing finances, etc.?: No Are you currently unemployed and looking for a job?: No Are you interested in more education?: I choose not to answer this question Please select the resources that you would like help with: None Currently or been in a relationship where the following occur: I choose not to answer THRIVE Score: 0 AUDIT C Alcohol Use Questionnaire (AUDIT-C) 1. How often do you have a drink containing alcohol?: Never 3. How often do you have six or more drinks on one occasion?: Never Total Score: 0 RL-7 AMB Questionnaire RL-7 Date LR - 7 assessed: 07/04/24 Feeling nervous, anxious, or on edge: 1 = Several days Not being able to stop or control worryin = Several days Worrying too much about different things: 0 = Not at all Trouble relaxin = Several days Being so restless that it is hard to sit still: 1 = Several days Becoming easily annoyed or irritable: 1 = Several days Feeling afraid as if something awful might happen: 1 = Several days Total RL-7 score (0-4 normal; 5-9 mild; 10-14 moderate; 15-21 severe): 6 Source: Developed by Drs. Nicholas Howell, Marlys Sykes, Jared Fox and colleagues, with an educational sameera from [employer]. Review of Systems Const Denies poor appetite and Denies weakness Eyes Denies no additional complaints ENT Reports Normal hearing present, Denies dizziness, Denies nasal congestion, Den ies tinnitus and Denies sore throat Card Denies chest pain, Denies syncope, Denies rapid heart rate and Denies dyspnea Resp Denies cough and Denies dyspnea GI Denies change in stool character, Reports constipation, Denies diarrhea, Denies nausea and Denies vomiting Denies dysuria and Denies urinary frequency Neuro Reports Normal hearing present, Denies confusion, Denies dizziness, Denies syncope and Denies weakness Psych Denies confusion Physical exam (Primary Care) Vital Signs: Last Vital Signs Temp 97.3 F 10/18/24 16:12 Pulse 97 10/18/24 16:12 BP 148/100 H 10/18/24 16:12 Pulse Ox 99 10/18/24 16:12 Oxygen Delivery Method Room Air 10/18/24 16:12 BMI result Body Mass Index 54.7 Tobacco/Smoking Status: Tobacco use Status Tobacco use date assessed 10/18/24 10/18/24 16:19 Patient Tobacco Use Status Never used Tobacco 10/18/24 16:53 Tobacco use type Cigarette 10/18/24 16:53 e-Cigarette/Vaping Use Never Used 10/18/24 16:53 PHQ-9: PHQ-9 Score PHQ-9: Total score 1 10/18/24 16:50 Depression Screening Interpretation: Negative Thrive Assessment: Date of Thrive Assessment Date Thrive assessed 06/27/24 10/18/24 16:19 Currently or been in a relationship where the following occur: I choose not to answer Const General: No confusion Orientation/consciousness: No confusion HENMT Head: Yes normocephalic Ears: external ears normal and TM's normal bilaterally Face and sinus: Yes normal facial exam Mouth: moist mucous membranes Throat: Yes tonsils normal Eyes Conjunctivae: conjunctivae normal Pupils: Equal, round and reactive pupils present and Pupil accommodation reflex normal Direct Ophthalmoscopy: normal light reflex Neck Neck: No lymphadenopathy Thyroid: Thyroid normal Chest Chest palpation & inspection: normal inspection of the chest Resp Effort & Inspection: normal respiratory effort and no audible wheezes Auscultation: clear to auscultation bilaterally, no crackles, no wheezes and lung sounds not diminished Cardio Rate: regular rate Rhythm: regular rhythm Peripheral pulses: radial pulses present and dorsalis pedis present GI Palpation (GI): no masses Auscultation: normal bowel sounds and normoactive bowel sounds Rectal Exam - Male: Yes deferred Skin General skin exam: no rashes or lesions noted Rashes: no rashes Neuro General: No confusion Cranial nerves: Yes Equal, round and reactive pupils present and Yes Normal hearing present Cognition (Neuro): normal cognition Gait exam (Neuro): Normal gait present Motor exam (neuro): 5/5 motor strength present throughout Deep tendon reflexes (DTR's): Right brachioradialis reflex intensity grade: 2+, Left brachioradialis reflex intensity grade: 2+, Right patellar reflex intensity grade: 2+ and Left patellar reflex intensity grade: 2+ Extrem General: No edema Coding Level of Care Code Est Pt Prev Care 18-39y(03434) Diagnoses Annual physical exam Z00.00 Asthma J45.909 Polycystic kidney disease Q61.3 CURIEL (nonalcoholic steatohepatitis) K75.81 Morbid obesity due to excess calories E66.01 Impaired fasting blood sugar R73.01 Hypertension I10 Assessment & Plan Assessment & Plan (1) Annual physical exam: Code(s): Z00.00 - Encounter for general adult medical examination without abnormal findings Category: Medical Plan: Patient is advised to eat healthy, keep well hydrated, keep active and have adequate sleep. (2) Asthma: Code(s): J45.909 - Unspecified asthma, uncomplicated Category: Medical Plan: Stable (3) Polycystic kidney disease: Comment: Nephrology 2021 Code(s): Q61.3 - Polycystic kidney, unspecified Category: Medical Plan: Stable (4) CURIEL (nonalcoholic steatohepatitis): Code(s): K75.81 - Nonalcoholic steatohepatitis (CURIEL) Category: Medical Plan: Low-fat diet and exercise (5) Morbid obesity due to excess calories: Code(s): E66.01 - Morbid (severe) obesity due to excess calories Category: Medical Plan: Patient is strongly advised to eat better and keep active to lose weight (6) Impaired fasting blood sugar: Code(s): R73.01 - Impaired fasting glucose Category: Medical Plan: Decrease the amount of carbohydrate intake, pasta, bread, rice and potatoes are all sugar and that is aside from all the sweet stuff, remember that fruits are good but they are Sweet also. (7) Hypertension: Comment: BP at home is good Code(s): I10 - Essential (primary) hypertension Category: Medical Plan: Patient states continues to monitor blood pressure and is good at home Plan History of Present Illness The patient is a 24-year-old male presenting for a physical exam and management of chronic conditions. The patient has a history of morbid obesity, with a recent weight gain of 10 pounds. He has been advised to follow a low-fat diet and engage in regular exercise to manage his weight. The patient has asthma, hypertension, and polycystic kidney disease. He monitors his blood pressure at home, which is generally well-controlled, although elevated readings have been noted in the clinic. The patient is known to have hepatic steatosis, with mildly elevated liver function tests noted in recent blood work. An ultrasound was performed years ago, confirming fatty liver, and a follow-up ultrasound is planned due to the time elapsed since the last imaging. The patient has a history of iron deficiency anemia, but recent blood work shows normal iron levels. The patient reports impaired glucose tolerance, but recent blood sugar levels were normal. Health Maintenance - Diet: Low-fat diet recommended - Exercise: Regular physical activity advised - Weight management: Encouraged to lose weight through diet and exercise - Vaccinations: Flu shot recommended in November Social History - Substance use: Denies smoking, consumes alcohol occasionally, about once a year - Exercise: Engages in physical activity to aid weight loss - Diet: Acknowledges eating more than necessary, advised to improve dietary habits Review of Systems - General: Denies dizziness, nausea, vomiting, fever - Cardiovascular: Denies chest pain, palpitations, syncope - Respiratory: Denies dyspnea, cough, wheezing - Gastrointestinal: Denies heartburn, constipation, reports normal bowel movements - Genitourinary: Denies dysuria, reports nocturia once per night - Neurological: Denies headaches, dizziness Physical Exam General: Cooperative, healthy appearing, comfortable, no acute distress and well developed Orientation: Patient oriented x3 Limitations: No limitations Head: Normal to inspection Ears: Hearing grossly normal bilaterally, but a lot of ear wax present Nose: Normal external nose present Face and sinus: Normal facial exam Eyes: Appearance normal, both eyes and all related structures Neck: Normal visual inspection and Yes full ROM Respiratory: Normal respiratory effort and able to speak in complete sentences. Clear to auscultation bilaterally Cardiovascular: Regular rate and rhythm. Normal S1 and S2 GI: Normal to inspection. Soft to palpation and nontender Skin: No rashes or lesions noted Neuro: Patient oriented x3 Extremities: Normal to inspection Results - Labs: Normal blood count, normal electrolytes, normal kidney function, normal blood sugar, normal iron levels, elevated liver function tests, LDL cholesterol at 95 mg/dL, normal B12, folic acid, and thyroid levels Plan Patient was informed and verbally consented to the use of an ambient scribe for clinic note documentation during this visit. 1. Morbid Obesity The patient is advised to follow a low-fat diet and engage in regular exercise to manage weight. Consideration of weight loss medication was discussed, with a plan to try injectable medication if approved by insurance. 2. Hypertension The patient monitors blood pressure at home, which is generally well-controlled. Hydrochlorothiazide was prescribed to manage elevated blood pressure readings noted in the clinic. 3. Hepatic Steatosis The patient has a history of hepatic steatosis with mildly elevated liver function tests. A follow-up ultrasound is planned to reassess the condition due to the time elapsed since the last imaging. Discussion Notes I discussed with the patient the importance of managing his weight through diet and exercise, and we considered the use of injectable weight loss medication if insurance approves. We also reviewed his blood pressure management, prescribing hydrochlorothiazide to address elevated readings noted in the clinic. A follow- up ultrasound for hepatic steatosis was planned due to the time elapsed since the last imaging. Patient Instructions - Follow a low-fat diet and engage in regular exercise to manage weight. - Monitor blood pressure at home regularly and report any significant changes. - Take hydrochlorothiazide as prescribed to manage blood pressure. - Schedule a follow-up ultrasound for hepatic steatosis. - Consider injectable weight loss medication if approved by insurance. Orders: Orders US abdomen complete Today K75.81 - Nonalcoholic steatohepatitis (CURIEL), R79.89 - Other specified abnormal findings of blood chemistry Medications: New hydrochlorothiazide 25 mg PO DAILY 30 tabs 3RF I10 - Essential (primary) hype rtension tirzepatide (Mounjaro) for 4 weeks 2.5 mg (0.5 mL) subcut QWEEK 2 mL 3RF E66.01 - Morbid (severe) obesity due to excess calories Refilled ketoconazole 2% 1 appl topical 2XW 120 mL 0RF L21.9 - Seborrheic dermatitis, unspecified
--- OUTSIDE RECORDS SUMMARY | 2024-10-18 16:46 | XMS_ITS | Clinical Summary ---
Author Organization [facility] Address [address] [place] [address] Phone Care Team Providers Care Cuff Turner Name Role Phone Georgette Angelo MD Primary Care Provider [phone] Allergies No known active allergies Medications cholecalciferol (VITAMIN D-3) 25 MCG (1000 UT) capsule Active Active Problems Problem Noted Date Diagnosed Date Obese 07/11/2024 Nonalcoholic steatohepatitis (CURIEL) 07/08/2021 Polycystic kidney, not [...] Sign Reading Time Taken Comments Blood Pressure 132/80 07/11/2024 9:28 AM EDT Pulse - - Temperature - - Respiratory Rate - - Oxygen Saturation - - Inhaled Oxygen Concentration - - Weight - - Height - - Body Mass Index - - Plan of Treatment Upcoming Encounters Date Type Department Care Team ([facility] st Contact Info) Description 07/21/2025 1:45 PM EDT Office Visit [facility], [address] [place] [id number] Kev Lockett MD [address] [place] [address] [place] [phone] Health Maintenance Due Date Last Done Comments Hepatitis B Vaccine (3 of 3 - 3-dose series) 05/13/2001 03/18/2001, 2000 Pneumococcal Vaccine: Peds ( 0 to 5 Years) and At-Risk Patients (6 to 49 Years) (1 of 2 - PCV) 05/31/2019 01/18/2001, 2000, 2000 Influenza Vaccine (#1) 2024 Procedures Procedure Name Priority Date/Time Associated Diagnosis Comments URINE ALBUMIN / CREATININE RATIO Routine 07/20/2024 2:53 PM EDT Polycystic kidney, not otherwise specified Nonalcoholic steatohepatitis (CURIEL) Obese URINALYSIS WITH MICROSCOPIC Routine 07/20/2024 2:53 PM EDT Polycystic kidney, not otherwise specified Nonalcoholic steatohepatitis (CURIEL) Obese RENAL FUNCTION PANEL Routine 07/20/2024 2:53 PM EDT Polycystic kidney, not otherwise specified Nonalcoholic steatohepatitis (CURIEL) Obese from Last 3 Months Results * Urine Albumin / Creatinine Ratio (07/20/2024 2:53 PM EDT) Urine specimen (specimen) Urine specimen obtained by clean catch procedure / Unknown Kev Lockett MD LAB URINE ORDERABLES Final Result [facility] * Urinalysis with microscopic (07/20/2024 2:53 PM EDT) Urine specimen (specimen) Urine specimen obtained by clean catch procedure / Unknown Kev Lockett MD LAB URINE ORDERABLES Final Result [facility] * Renal function panel (07/20/2024 2:53 PM EDT) Blood specimen (specimen) Venous blood / Unknown Kev Lockett MD LAB BLOOD ORDERABLES Final Result [facility] from Last [address] [place] [address] [place] [address] Medicaid Care Teams Cuff Turner Relationship Specialty Start Date End Date Georgette Angelo MD [facility] [place] [address] [place], [place] PCP - General Internal Medicine 04/30/21
--- OUTSIDE RECORDS SUMMARY | 2024-10-18 16:46 | XMS_ITS | Encounter Summary ---
Author Organization [facility] Address [address] [place] [address] Phone Care Team Providers Care Director Prospect Name Role Phone Georgette Angelo MD Primary Care Provider Encounter Details Date Type Department Care Team (Late Contact Info) Description 05/01/2021 Documentation Only [facility] [address] [place] [address] [facility]NAL [address] [place] [address] Social History Tobacco Use Types Packs/Day Years [...] Visit [facility] [address] [place] [address] Kev Lockett MD [address] [place] [address] [place] [address] documented as of this encounter Visit Diagnoses Not on filedocumented in this encounter Care Teams Director Prospect Relationship Specialty Start Date End Date Georgette Angelo MD [facility] [place] [address] [place] [address] PCP - General Internal Medicine 04/30/21 documented as of this encounter
--- OUTSIDE RECORDS SUMMARY | 2024-10-18 16:46 | XMS_ITS | Encounter Summary ---
Author Organization [facility] Address [address] [place] [address] Phone Care Team Providers Care Human Relations Manager Name Role Phone Georgette Angelo MD Primary Care Provider [phone] Encounter Details Date Type Department Care Team (Late Contact Info) Description 07/16/2023 Documentation Only [facility] [address] [place] [address] [address] [place] [address] [place] [phone] Social History Tobacco Use Types Packs/Day Years [...] Visit [facility] [address] [place] [address] Kev Lockett MD [address] [place] [place] [address] documented as of this encounter Visit Diagnoses Not on filedocumented in this encounter Care Teams Human Relations Manager Relationship Specialty Start Date End Date Georgette Angelo MD [facility] [place] [address] [place], [place] PCP - General Internal Medicine 04/30/21 documented as of this encounter
--- OUTSIDE RECORDS SUMMARY | 2024-10-18 16:46 | XMS_ITS | Encounter Summary ---
Author Organization [facility] Address [address] [place] [address] Phone Care Team Providers Care Bar Staff Name Role Phone Georgette Angelo MD Primary Care Provider [phone] Encounter Details Date Type Department Care Team (Late Contact Info) Description 05/01/2021 Documentation Only [facility] Of [address] [place] [address] Georgette Angelo MD [facility] [address] [place] [address] Social History Tobacco Use Types Packs/Day Years [...] Visit [facility] [address] [place] [address] Kev Lockett MD [address] [place] [address] [place] [address] documented as of this encounter Visit Diagnoses Not on filedocumented in this encounter Care Teams Bar Staff Relationship Specialty Start Date End Date Georgette Angelo MD [facility] [address] [place] [address] PCP - General Internal Medicine 04/30/21 documented as of this encounter
--- OUTSIDE RECORDS SUMMARY | 2024-10-18 16:46 | XMS_ITS | Encounter Summary ---
Author Organization [facility] Address [address] [place] [address] Phone Care Team Providers Care Rn Hospital Name Role Phone Georgette Angelo MD Primary Care Provider [phone] Encounter Details Date Type Department Care Team (Late Contact Info) Description 05/01/2021 Documentation Only [facility] [address] [place] [address] Ge[facility] Angel[facility] INTERNAL [address] [place] [address] Social History Tobacco Use Types Packs/Day Years [...] Visit [facility] [address] [place] [address] Kev Lockett MD [address] [place] [address] [place] [address] documented as of this encounter Visit Diagnoses Not on filedocumented in this encounter Care Teams Rn Hospital Relationship Specialty Start Date End Date Georgette Angelo MD [facility] [place] [address] [place] [address] PCP - General Internal Medicine 04/30/21 documented as of this encounter
--- OUTSIDE RECORDS SUMMARY | 2024-10-18 16:46 | XMS_ITS | Encounter Summary ---
Author Organization [facility] Address [address] [place] [address] Phone Care Team Providers Care Data Assistant Name Role Phone Georgette Angelo MD Primary Care Provider [phone] Encounter Details Date Type Department Care Team (Late Contact Info) Description 05/01/2021 Documentation Only [facility] [address] [place] [address] Georgette Angelo MD [facility] INTERNAL [address] [place] [address] Social History Tobacco Use Types Packs/Day Years [...] [facility] [address] [place] [address] Kev Lockett MD [address] [place] [address] [place] [address] documented as of this encounter Visit Diagnoses Not on filedocumented in this encounter Care Teams Data Assistant Relationship Specialty Start Date End Date Georgette Agnelo MD [facility] [place] [address] [place] [address] PCP - General Internal Medicine 04/30/21 documented as of this encounter
== END 2024-10-18 17:15 | disposition home or self-care (01) ==
LOC: HO.HMCH 16:09
PROVIDERS: PCP Internal Medicine; Visit Provider Internal Medicine
DX: Z00.00 Encounter for general adult medical examination without abnormal findings (principal); J45.909 Unspecified asthma, uncomplicated; E66.01 Morbid (severe) obesity due to excess calories; Z68.43 Body mass index [BMI] 50.0-59.9, adult; Q61.3 Polycystic kidney, unspecified; K75.81 Nonalcoholic steatohepatitis (NASH); R73.01 Impaired fasting glucose; I10 Essential (primary) hypertension

== ENCOUNTER → 2024-10-18 16:08 | Outpatient (BNVA) | payer OTHER, SELFPAY | PROVIDERS: PCP Internal Medicine; Visit Provider Internal Medicine | DX: Z00.00 Encounter for general adult medical examination without abnormal findings (principal); J45.909 Unspecified asthma, uncomplicated; Q61.3 Polycystic kidney, unspecified; K75.81 Nonalcoholic steatohepatitis (NASH); E66.01 Morbid (severe) obesity due to excess calories; R73.01 Impaired fasting glucose; I10 Essential (primary) hypertension; L21.9 Seborrheic dermatitis, unspecified; Z68.43 Body mass index [BMI] 50.0-59.9, adult | CPT/HCPCS: 96127; 99395 ==

== ENCOUNTER 2025-01-06 08:23 | Outpatient (AMB) | payer OTHER, SELFPAY ==
[2025-01-06 08:29] VITALS: BP 146/88; PULSE 79; O2SAT 98; BMI 54.4
--- NOTE | 2025-01-06 08:29 | MHC.PC.OV ---
Vital Signs 01/06/25 08:29 Height 5 ft 10 in Weight 379 lb BMI 54.4 BP 146/88 H Blood Pressure Location Lt brachial Position Sitting Pulse 79 Pulse Source Pulse Oximeter Pulse Oximetry (%) 98 Oxygen Delivery Method Room Air Intake Visit Reasons: follow up Allergies No Known Allergies (No Known Allergies*) Allergy (Verified 01/06/25 08:30) Medication List - Last Reconciled 01/06/25 by Georgette Angelo MD ascorbic acid (vitamin C) (Vitamin C) 500 mg PO DAILY cyanocobalamin (vitamin B-12) 1,000 mcg PO DAILY ferrous sulfate 325 mg PO DAILY folic acid 1 mg PO DAILY hydrochlorothiazide 25 mg PO DAILY ketoconazole 2% 1 appl topical 2XW tirzepatide (Mounjaro) 2.5 mg (0.5 mL) subcut QWEEK Tobacco use date assessed: 10/18/24 Dental Screening Dental Screen Date: 10/18/24 HPI follow up HPI Details BP remains high in the office but patient state good. meanwhile not able to get the tirzepatide [facility] Medical History Annual physical exam Obesity Asthma Polycystic kidney disease CURIEL (nonalcoholic steatohepatitis) Surgical History No pertinent past surgical history Family History Mother Diabetes Father Diabetes Polycystic kidney disease Sister No problems noted. Social History (Updated 10/18/24 @ 16:53 by Georgette Angelo MD) Housing: Other Alcohol intake: current Comment: once a year 1 drink Patient Tobacco Use Status: Never used Tobacco Tobacco use type: Cigarette e-Cigarette/Vaping Use: Never Used Second Hand Smoke Exposure: No service: No Current occupational status: employed Cognitive needs: No Hearing needs: No Vision needs: No Questionnaire Thrive Questionnaire Date Thrive assessed: 06/27/24 I am a: Patient What is your living situation today?: I have a steady place to live Within the past 12 months, did the food you bought not last and you didn't have the money to get more?: I choose not to answer this question Within the past 12 months, did you worry whether your food would run out before you got money to buy more?: Never true Do you have trouble paying for medicines?: No Do you have trouble getting transportation to medical appointments?: No Do you have trouble paying your heating and electricity bill?: No Do you have trouble taking care of your child, family member or friend?: No Do you have trouble with day-to-day activities such as bathing, preparing meals, shopping, managing finances, etc.?: No Are you currently unemployed and looking for a job?: No Are you interested in more education?: I choose not to answer this question Please select the resources that you would like help with: None Currently or been in a relationship where the following occur: I choose not to answer THRIVE Score: 0 RL-7 AMB Questionnaire RL-7 Date RL - 7 assessed: 07/04/24 Source: Developed by Drs. Nicholas Howell, Marlys Sykes, Jared Fox and colleagues, with an educational sameera from [email or web address]. Physical exam (Primary Care) Vital Signs: Last Vital Signs Pulse 79 01/06/25 08:29 BP 146/88 H 01/06/25 08:29 Pulse Ox 98 01/06/25 08:29 Oxygen Delivery Method Room Air 01/06/25 08:29 BMI result Body Mass Index 54.4 Tobacco/Smoking Status: Tobacco use Status Tobacco use date assessed 10/18/24 01/06/25 08:35 Patient Tobacco Use Status Never used Tobacco 01/06/25 08:35 Tobacco use type Cigarette 01/06/25 08:35 e-Cigarette/Vaping Use Never Used 01/06/25 08:35 Thrive Assessment: Date of Thrive Assessment Date Thrive assessed 06/27/24 01/06/25 08:35 Currently or been in a relationship where the following occur: I choose not to answer Const General: alert; No acute distress Eyes Conjunctivae: conjunctivae normal Resp Auscultation: clear to auscultation bilaterally Cardio Rate: regular rate Rhythm: regular rhythm GI Inspection: Yes normal to inspection Extrem General: Yes normal to inspection and No edema Office Procedures Flu Questionnaire Does the patient have a severe egg allergy?: No Does the patient have severe life threatening allergies?: No Does the patient have a fever or illness today?: No Has the patient ever had Guillain-Rowley Syndrome?: No Has the patient ever had any past reaction to a flu shot?: No Immunizations Fluarix 1394-2399 (PF) 45 mcg (15 mcg x 3)/0.5 mL IM syringe Performing Provider: Georgette Angelo MD [facility] Administered by: Jen Varma CMA on 01/06/25 08:39 Dose Route Admin Location Dispensed Lot Number Expiration Date NDC Surgical Elastic Knitter Hand Frame 0.5 mL IM Left Deltoid 0.5 mL [id number] 08/22/25 [id number] [employer] VIS Given Date VIS Provided VIS Publication Date 01/06/25 Single Vaccine 24 Eligibility Eligibility Date Funding Source Not [facility] Eligible 01/06/25 Private Coding Level of Care Code Est Pt Level 4 (66493) Complex EM visit Add On G2211 Diagnoses Hypertension I10 Morbid obesity due to excess calories E66.01 CURIEL (nonalcoholic steatohepatitis) K75.81 Eczema L30.9 Assessment & Plan Assessment & Plan (1) Hypertension: Comment: BP at home is good Code(s): I10 - Essential (primary) hypertension Category: Medical Plan: Continue with blood pressure medication. Decrease salt intake and exercise on hydrochlorothiazide 25 mg once a day (2) Morbid obesity due to excess calories: Code(s): E66.01 - Morbid (severe) obesity due to excess calories Category: Medical Plan: Diet and exercise patient has been started on tirzepatide (3) CURIEL (nonalcoholic steatohepatitis): Code(s): K75.81 - Nonalcoholic steatohepatitis (CURIEL) Category: Medical Plan: Low-fat diet and exercise (4) Eczema: Code(s): L30.9 - Dermatitis, unspecified Category: Medical Plan History of Present Illness The patient is a 24-year-old male presenting for a follow-up visit for management of multiple chronic conditions. His past medical history is significant for morbid obesity, hypertension, polycystic kidney disease, asthma, hepatic steatosis, and impaired glucose tolerance. His last blood work was in June, which showed a normal blood count, electrolytes, renal function, hemoglobin A1c, cholesterol, vitamin B12, folic acid, and thyroid function. However, his liver function tests were noted to be elevated and increasing. For hypertension, the patient is on hydrochlorothiazide and reports that his blood pressure readings at home are good, though they were elevated in the office today. He reports some recent weight loss, but efforts to obtain Zepbound or Mounjaro for further weight management have been unsuccessful due to insurance denials. He reports a current skin issue consistent with eczema or a yeast infection. A previously prescribed medicated shampoo provided some relief, but he has run out of it. Health Maintenance The patient received an influenza vaccine today and is up to date on his tetanus vaccination. He is advised to follow up in approximately three months, but to make contact sooner if any problems arise. Social History - Weight management: The patient has experienced some weight loss. Review of Systems - Respiratory: Denies breathing issues. - Gastrointestinal: Denies nausea and vomiting. - Integumentary: Reports a rash described as yeast-like or eczema. Physical Exam - Vitals: Blood pressure is elevated, with a systolic reading of around 140 mmHg. - Integumentary: A rash suggestive of eczema is present. Results - Labs from June showed a normal blood count, normal electrolytes, good renal function, and a normal hemoglobin A1c. - Cholesterol, vitamin B12, folic acid, and thyroid studies were within normal limits. - Liver function tests were elevated. Plan Patient was informed and verbally consented to the use of an ambient scribe for clinic note documentation during this visit. 1. Hypertension The patient's blood pressure was elevated in the office today, around 140 systolic, despite being on hydrochlorothiazide. He reports good control with home monitoring. He is instructed to continue monitoring his blood pressure at home and to bring a log of his readings to the next visit. 2. Elevated Liver Enzymes / Hepatic Steatosis The patient has elevated liver function tests that are trending higher. A liver ultrasound is scheduled for February 01 to further evaluate his liver. 3. Eczema The patient has a recurrent skin rash, consistent with eczema. A medicated shampoo and a cream will be prescribed. The patient is instructed to apply the cream twice a day for one week only and can stop sooner if the condition improves. He was educated that eczema is a chronic condition that may recur. 4. Morbid Obesity The patient has had some success with weight loss. To support further weight loss, a prescription for Zepbound will be submitted, as Mounjaro was previously denied by insurance. Discussion Notes I discussed with the patient that his blood pressure was elevated in the office today, and I stressed the importance of continuing to monitor it at home and bringing in his log. I informed him that the purpose of his upcoming ultrasound on February 01 is to check his liver due to his elevated liver function tests. Regarding his skin rash, I explained that it is likely eczema, which is a chronic condition that can flare up. I provided instructions for a new cream, specifying it should be used twice a day for a maximum of one week, and also prescribed a shampoo. Given the insurance denial for Mounjaro, I expressed my concern and intention to try prescribing Zepbound to aid his weight loss efforts. I advised him to follow up in three months, or sooner if any issues arise. Patient Instructions - Please continue to check your blood pressure at home and write down the numbers in a log to bring to your next visit. - Do not forget your liver ultrasound appointment scheduled for February 01. - For your skin rash, use the prescribed cream twice a day for one week only and then stop. If it gets better in a few days, you can stop using it then. Do not use it for more than one week. - I will try to get insurance to approve the weight loss medicine Zepbound for you. - You received your flu shot today. - Please schedule a follow-up visit in about three months. If you have any problems before then, please let us know. Orders: Orders Influenza [id number] Immunization Today Z23 - Encounter for immunization Medications: New tirzepatide (weight loss) (Zepbound) for 4 weeks 2.5 mg (0.5 mL) subcut QWEEK 2 mL 3RF E66.01 - Morbid (severe) obesity due to excess calories triamcinolone acetonide 0.5% 1 appl topical BID 30 grams 0RF 7 days L30.9 - Dermatitis, unspecified Refilled ketoconazole 2% 1 appl topical 2XW 120 mL 0RF L21.9 - Seborrheic dermatitis, unspecified Discontinued tirzepatide (Mounjaro) for 4 weeks Discontinued Reason: Insurance Denied 2.5 mg (0.5 mL) subcut QWEEK 2 mL 3RF E66.01 - Morbid (severe) obesity due to excess calories
--- OUTSIDE RECORDS SUMMARY | 2025-01-06 08:36 | XMS_ITS | Encounter Summary ---
Author Organization [facility] Address [address] [place] [address] Phone Care Team Providers Care Blanket Cutting Machine Operator Name Role Phone Georgette Angelo MD Primary Care Provider [phone] Encounter Details Date Type Department Care Team (Late Contact Info) Description 07/16/2023 Documentation Only [facility] [address] [place] [address] Heike Terry [address] [place] [phone] Social History Tobacco Use Types Packs/Day Years [...] Visit [facility] [address] [place] [address] Kev Lockett MD [address] [place] [address] documented as of this encounter Visit Diagnoses Not on filedocumented in this encounter Care Teams Blanket Cutting Machine Operator Relationship Specialty Start Date End Date Georgette Angelo MD [facility] [place] [address] [place], [place] PCP - General Internal Medicine 04/30/21 documented as of this encounter
--- OUTSIDE RECORDS SUMMARY | 2025-01-06 08:36 | XMS_ITS | Encounter Summary ---
Author Organization [facility] Address [address] [place] [address] Phone Care Team Providers Care Motor Overhauler Name Role Phone Georgette Angelo MD Primary Care Provider [phone] Encounter Details Date Type Department Care Team (Late Contact Info) Description 05/01/2021 Documentation Only [facility] [address] [place] [address] [facility]te [facility] MD [facility] [address] [place] [address] Social History Tobacco Use Types Packs/Day Years [...] Visit [facility] [address] [place] [address] Kev Lockett MD [address] [place] [address] [place] [address] documented as of this encounter Visit Diagnoses Not on filedocumented in this encounter Care Teams Motor Overhauler Relationship Specialty Start Date End Date Georgette Angelo MD [facility] [address] [place] [address] PCP - General Internal Medicine 04/30/21 documented as of this encounter
--- OUTSIDE RECORDS SUMMARY | 2025-01-06 08:36 | XMS_ITS | Encounter Summary ---
Author Organization [facility] Address [address] [place] [address] Phone Care Team Providers Care Wing Coverer Name Role Phone Georgette Angelo MD Primary Care Provider [phone] Encounter Details Date Type Department Care Team (Late Contact Info) Description 05/01/2021 Documentation Only [facility] [address] [place] [address] Georgette Angelo MD [facility] INTERNAL [address] [place] [address] Social History Tobacco Use Types Packs/Day Years [...] Visit [facility] [address] [place] [address] Kev Lockett MD [address] [place] [address] [place] [address] documented as of this encounter Visit Diagnoses Not on filedocumented in this encounter Care Teams Wing Coverer Relationship Specialty Start Date End Date Georgette Angelo MD [facility] [place] [address] [place] [address] PCP - General Internal Medicine 04/30/21 documented as of this encounter
--- OUTSIDE RECORDS SUMMARY | 2025-01-06 08:36 | XMS_ITS | Clinical Summary ---
Author Organization [facility] Address [address] [place] [address] Phone Care Team Providers Care Laboratory Chief Name Role Phone Georgette Angelo MD Primary Care Provider [phone] Allergies No known active allergies Medications cholecalciferol [...] Upcoming Encounters Date Type Department Care Team ([facility] st Contact Info) Description 07/21/2025 1:45 PM EDT Office Visit [facility], [address] [place] [id number] Kev Lockett MD [address] [place] [id number] Health Maintenance Due Date Last Done Comments Hepatitis B Vaccine (3 of 3 - 3-dose series) 05/13/2001 03/18/2001, 2000 Pneumococcal Vaccine: Peds ( 0 to 5 Years) and At-Risk Patients (6 to 49 Years) (1 of 2 - PCV) 05/31/2019 01/18/2001, 2000, 2000 Influenza Vaccine (#1) [address] [place] [address] [place] [address] Medicaid Care Teams Laboratory Chief Relationship Specialty Start Date End Date Georgette Angelo MD [facility] [place] [address] [place], [place] PCP - General Internal Medicine 04/30/21
--- OUTSIDE RECORDS SUMMARY | 2025-01-06 08:36 | XMS_ITS | Encounter Summary ---
Author Organization [facility] Address [address] [place] [address] Phone Care Team Providers Care Veneer Sorter Name Role Phone Georgette Angelo MD Primary Care Provider [phone] Encounter Details Date Type Department Care Team (Late Contact Info) Description 05/01/2021 Documentation Only [facility] [address] [place] [address] Georgette Angelo MD [facility] INTERNAL [address] [place] [address] Social History Tobacco Use Types Packs/Day Years [...] Visit [facility] [address] [place] [address] Kev Lockett MD [address] [place] [address] [place] [address] documented as of this encounter Visit Diagnoses Not on filedocumented in this encounter Care Teams Veneer Sorter Relationship Specialty Start Date End Date Georgette Angelo MD [facility] [place] [address] [place] [address] PCP - General Internal Medicine 04/30/21 documented as of this encounter
--- OUTSIDE RECORDS SUMMARY | 2025-01-06 08:36 | XMS_ITS | Encounter Summary ---
Author Organization [facility] Address [address] [place] [address] Phone Care Team Providers Care Upper Doubler Name Role Phone Georgette Angelo MD Primary Care Provider [phone] Encounter Details Date Type Department Care Team (Late Contact Info) Description 05/01/2021 Documentation Only [facility] [address] [place] [address] Georgette Angelo MD [facility] [address] [place] [address] Social History Tobacco Use Types Packs/Day Years [...] Visit [facility] [address] [place] [address] Kev Lockett MD [address] [place] [address] [place] [address] documented as of this encounter Visit Diagnoses Not on filedocumented in this encounter Care Teams Upper Doubler Relationship Specialty Start Date End Date Georgette Angelo MD [facility] [place] [address] [place] [address] PCP - General Internal Medicine 04/30/21 documented as of this encounter
== END 2025-01-06 08:52 | disposition home or self-care (01) ==
LOC: HO.HMCH 08:23
PROVIDERS: PCP Internal Medicine; Visit Provider Internal Medicine
DX: I10 Essential (primary) hypertension (principal); E66.01 Morbid (severe) obesity due to excess calories; K75.81 Nonalcoholic steatohepatitis (NASH); L30.9 Dermatitis, unspecified; Z23 Encounter for immunization; Z68.43 Body mass index [BMI] 50.0-59.9, adult

== ENCOUNTER → 2025-01-06 08:23 | Outpatient (BNVA) | payer OTHER, SELFPAY | PROVIDERS: PCP Internal Medicine; Visit Provider Internal Medicine | DX: I10 Essential (primary) hypertension (principal); E66.01 Morbid (severe) obesity due to excess calories; K75.81 Nonalcoholic steatohepatitis (NASH); L21.9 Seborrheic dermatitis, unspecified; Z23 Encounter for immunization; Z68.43 Body mass index [BMI] 50.0-59.9, adult | CPT/HCPCS: 90471; 90656; 99212 ==

== ENCOUNTER 2025-02-01 09:06 | Outpatient (REF) | payer OTHER, SELFPAY ==
--- NOTE | ~2025-02-01 | US_ITS ---
CLINICAL HISTORY: R79.89 - Other specified abnormal findings of blood chemistry US abdomen complete with color Doppler Comparison: None Findings: Midline structures obscured by bowel gas. Liver is enlarged and diffusely echogenic. Right lobe 21.6 cm length. No focal hepatic masses. Common duct 5.0 mm diameter. Physiologic distention of the gallbladder. No gallstones or sludge. No gallbladder wall thickening. No pericholecystic fluid. No sonographic Valdivia sign. Main portal vein antegrade. Right kidney measures 16.0 cm in length. There is cortical thinning and increased renal echotexture with multiple renal cortical cysts. No nephrolithiasis. No hydronephrosis. Left kidney measures 16.9 cm in length. There is cortical thinning and increased renal echotexture with multiple renal cortical cysts. No nephrolithiasis. No hydronephrosis. Spleen measures 13.2 cm. No splenic masses. No ascites. No lymphadenopathy. Impression: 1. Numerous renal cortical cysts cortical thinning and increased renal echotexture. 2. Hepatic steatosis with hepatomegaly. 3. Bowel gas obscures midline structures. This document has been electronically signed by: Judah Georges MD on 02/02/2025 10:47:02
== END 2025-02-01 09:07 | disposition home or self-care (01) ==
LOC: HO.US 09:06
PROVIDERS: PCP Internal Medicine; Visit Provider Internal Medicine
DX: K75.81 Nonalcoholic steatohepatitis (NASH) (principal); R79.89 Other specified abnormal findings of blood chemistry
CPT/HCPCS: 76700

== ENCOUNTER → 2025-02-01 09:08 | Outpatient (BNV) | payer OTHER, SELFPAY | PROVIDERS: PCP Internal Medicine; Visit Provider Radiology Diagnostic Radiology | DX: N28.1 Cyst of kidney, acquired (principal); K76.0 Fatty (change of) liver, not elsewhere classified; R16.0 Hepatomegaly, not elsewhere classified; N26.1 Atrophy of kidney (terminal); R93.429 Abnormal radiologic findings on diagnostic imaging of unspecified kidney | CPT/HCPCS: 76700 ==